=== PATIENT | female | born 1945 | race Caucasian/White ===

== ENCOUNTER 2019-09-21 12:34 | Emergency (ER) | payer BC, MEDICARE ==
[2019-09-21] MEDS ORDERED: Nitroglycerin 0.4 MG Tab.SL SL PRN (12:40)
[2019-09-21] MEDS ORDERED: Aspirin 81 MG Tab.Chew PO ONE (12:40)
--- NOTE | 2019-09-21 12:52 | EDM.PDOC ---
ED HPI GENERAL MEDICAL PROBLEM - General Chief Complaint: Chest Pain Stated Complaint: CHEST PAIN Time Seen by Provider: 09/21/19 12:35 Source of Information: Reports: Patient, Family History Limitations: Reports: No Limitations - History of Present Illness INITIAL COMMENTS - FREE TEXT/NARRATIVE: Patient states approximate couple hours ago she was having midsternal chest pain radiating to the left with some shortness of breath describes it as a pressure was about 4 out of 10. Upon arrival to the ER via POV she states she has no pain She denies any nausea vomiting diaphoretic episodes along with no lightheadedness or dizziness or passing out states she has been seen by her heart doctor before and has had a stress test never had a cath been told the only problem she has is hypertension Onset: Sudden Duration: Hour(s): Location: Reports: Chest Quality: Reports: Pressure Severity: Mild Improves with: Reports: Rest, Other (Time) Associated Symptoms: Reports: Chest Pain. Denies: Confusion, Cough, Diaphoresis , Fever/Chills, Headaches, Nausea/Vomiting, Weakness Middle Chest Pain Score (Numeric/FACES): 4 - Related Data Allergies Allergy/AdvReac Type Severity Reaction Status Date / Time No Known Allergies Allergy Verified 09/21/19 12:55 Home Meds: Home Meds Doxazosin [Doxazosin Mesylate] 1.5 tab PO DAILY 09/21/19 [History] Fluconazole [Diflucan] 150 mg PO DAILY 09/21/19 [History] hydrALAZINE [Apresoline] 50 mg PO Q8H 09/21/19 [History] Past Medical History Cardiovascular History: Reports: Hypertension Social & Family History - Family History Family Medical History: Noncontributory ED ROS GENERAL - Review of Systems Review Of Systems: See Below Constitutional: Reports: No Symptoms HEENT: Reports: No Symptoms Respiratory: Reports: Shortness of Breath. Denies: Wheezing, Pleuritic Chest Pain, Cough Cardiovascular: Reports: Chest Pain. Denies: Blood Pressure Problem, Claudication, Dyspnea on Exertion, Edema, Lightheadedness, Orthopnea, Palpitations, PND, Syncope Endocrine: Reports: No Symptoms GI/Abdominal: Reports: No Symptoms : Reports: No Symptoms Musculoskeletal: Reports: No Symptoms Skin: Reports: No Symptoms Neurological: Reports: No Symptoms Psychiatric: Reports: No Symptoms Hematologic/Lymphatic: Reports: No Symptoms Immunologic: Reports: No Symptoms ED EXAM, GENERAL - Physical Exam Exam: See Below Exam Limited By: No Limitations General Appearance: Alert, WD/WN, No Apparent Distress, Anxious, Other (Patient looks mildly anxious) Eye Exam: Bilateral Eye: PERRL Nose: Normal Inspection Throat/Mouth: Normal Inspection, Normal Lips, Normal Teeth, Normal Gums, Normal Oropharynx, Normal Voice, No Airway Compromise Neck: Normal Inspection, Supple, Non-Tender, Full Range of Motion Respiratory/Chest: No Respiratory Distress, Lungs Clear, Normal Breath Sounds, No Accessory Muscle Use, Chest Non-Tender Cardiovascular: Normal Peripheral Pulses, Regular Rate, Rhythm, No Edema, No Gallop, No JVD, No Murmur, No Rub GI/Abdominal: Normal Bowel Sounds, Soft, Non-Tender, No Organomegaly, No Distention Extremities: Normal Inspection, Normal Range of Motion, Non-Tender, Pedal Edema (1+ bilateral pedal edema). No: No Pedal Edema, Normal Capillary Refill Neurological: Alert, Oriented, CN II-XII Intact, Normal Cognition, Normal Gait Psychiatric: Normal Affect, Normal Mood Skin Exam: Warm, Dry, Intact, Normal Color, No Rash Course - Vital Signs Text/Narrative:: CBC BMP troponin chest x-ray EKG EKG normal sinus rhythm no acute findings of ST elevation or depression Positive troponin 0.[address] Zavala in the emergency room will accept transfer patient at 1342 give heparin 4000 bolus and transfer Last Recorded V/S: Last Vital Signs Temp 36.7 C 09/21/19 14:00 Pulse 76 09/21/19 14:00 Resp 16 09/21/19 14:00 BP 108/52 L 09/21/19 14:00 Pulse Ox 98 09/21/19 14:00 - Orders/Labs/Meds Orders: Active Orders 24 hr Category Date Time Status EKG Documentation Completion [RC] STAT Care 09/21/19 12:37 Active Labs: Laboratory Tests 09/21/19 09/21/19 09/21/19 Range/Units 12:52 12:52 12:52 WBC 9.5 (4.0-10.0) x10^3/uL RBC 3.60 L (4.00-5.50) x10^6/uL Hgb 11.0 L D (12.0-16.0) g/dL Hct 34.9 (33.0-47.0) % MCV 96.9 H D (78.0-93.0) fL MCH 30.6 (26.0-32.0) pg MCHC 31.5 L (32.0-36.0) g/dL RDW Coeff of Kimi 13.9 (10.0-15.0) % Plt Count 210 (130-400) x10^3/uL Neut % (Auto) 70.2 (50.0-80.0) % Lymph % (Auto) 22.1 L (25.0-50.0) % Leon % (Auto) 5.9 (2.0-11.0) % Eos % (Auto) 1.4 (0.0-4.0) % Baso % (Auto) 0.4 (0.2-1.2) % PT 10.2 (10.0-12.8) SEC INR 0.9 L (2.0-3.5) Sodium 143 (136-145) mmol/L Potassium 4.1 (3.5-5.1) mmol/L Chloride 104 (98-107) mmol/L Carbon Dioxide 26 (21-32) mmol/L Anion Gap 17.1 (10-20) mmol/L BUN 41 H (7-18) mg/dL Creatinine 2.2 H (0.55-1.02) mg/dL Est Cr Clr Drug Dosing TNP Estimated GFR (MDRD) 22 Glucose 121 H (74-106) mg/dL Calcium 9.4 (8.5-10.1) mg/dL Troponin I 0.208 H* (<=0.056) ng/mL Meds: Medications Discontinued Medications Generic Name Dose Route Start Last Admin Trade Name Freq PRN Reason Stop Dose Admin Aspirin 324 mg 09/21/19 12:40 09/21/19 12:40 Aspirin PO 09/21/19 12:41 324 mg ONETIME ONE Administration Heparin Sodium (Porcine) 4,000 units 09/21/19 13:40 09/21/19 13:49 Heparin Sodium IVPUSH 09/21/19 13:41 4,000 units .BOLUS ONE Administration Nitroglycerin 0.4 mg 09/21/19 12:40 09/21/19 12:50 Nitrostat SL 0.4 mg Q5M PRN Administration Chest Pain Departure - Departure Time of Disposition: 13:40 Disposition: DC/Tfer to Acute Hospital 02 Reason for Transfer *Q: Other (NSTEMI) Condition: Good Clinical Impression: NSTEMI (non-ST elevated myocardial infarction) Referrals: Daja Helm DO [Primary Care Provider] - Forms: ED Department Discharge, Interfacility Transfer JENNA Sepsis Event Note - Focused Exam Date Exam was Performed: 09/22/19 Time Exam was Performed: 08:27 - Problem List & Annotations (1) NSTEMI (non-ST elevated myocardial infarction) SNOMED Code(s): 36261987 Code(s): I21.4 - NON-ST ELEVATION (NSTEMI) MYOCARDIAL INFARCTION Status: Acute - My Orders Last 24 Hours: My Active Orders 09/21/19 12:37 EKG Documentation Completion [RC] STAT - Assessment/Plan Last 24 Hours: My Active Orders 09/21/19 12:37 EKG Documentation Completion [RC] STAT
--- NOTE | 2019-09-21 13:13 | CR ---
[id number] RAD/RAD Chest PA or AP 1V EXAM: FRONTAL CHEST INDICATION: CHEST PAIN. COMPARISON: July 05, 2016. DISCUSSION: Mild cardiomegaly without evidence of congestive heart failure. No acute infiltrates. IMPRESSION: 1. Stable mild cardiomegaly without evidence of congestive heart failure. Felipe Salcido MD 09/21/19 [id number] Thank you for allowing us to participate in the care of your patient.
[2019-09-21 13:32] LABS: ANION GAP 17.1 mmol/L (10-20); CHLORIDE,CL 104 mmol/L (98-107); SODIUM,NA 143 mmol/L (136-145)
[2019-09-21] MEDS ORDERED: Heparin Sodium 5,000 Units/ML Vial IVPUSH ONE (13:40)
[2019-09-21 14:05] VITALS: BP 108/52; PULSE 76
== END 2019-09-21 14:05 | disposition short-term general hospital (02) ==
LOC: VM.ED 12:34
DX: I21.4 Non-ST elevation (NSTEMI) myocardial infarction (principal); I10 Essential (primary) hypertension; Z79.899 Other long term (current) drug therapy
CPT/HCPCS: 71045; 80048; 84484; 85025; 85610; 93005; 96374; 99285; A9270; J1644

== ENCOUNTER 2019-09-26 09:36 | Emergency (ER) | payer BC, MEDICARE ==
[2019-09-26] MEDS ORDERED: Sodium Chloride 0.9% 10 ML Syringe FLUSH PRN (10:00)
[2019-09-26] MEDS ORDERED: Morphine 4 MG/ML Syringe IVPUSH ONE ×2 (10:02→12:09)
--- NOTE | 2019-09-26 10:06 | EDM.PDOC ---
ED HPI GENERAL MEDICAL PROBLEM - General Stated Complaint: ER Time Seen by Provider: 09/26/19 09:36 Source of Information: Reports: Patient, EMS, Family History Limitations: Reports: No Limitations - History of Present Illness INITIAL COMMENTS - FREE TEXT/NARRATIVE: Pt. presents to ER with complaints of L sided anterior chest pain with radiation into her L shoulder. Pt. states that she was getting up to use the bathroom from the sofa at onset of symptoms. Pt. was transferred to [facility] in [place] on 09/21/19 with NSTEMI and underwent stenting (90% stenosis mid LAD). She has residual 50% stenosis of RCA that appeared not be be addressed due to patient's CKD. Pt. was apparently experiencing some palpitations which she is not experiencing today. She also is currently being treated for UTI as well. Pt. states that during the onset symptoms on 09/21, she was experiencing substernal chest pain and bilateral upper extremity numbness. Today, she states that it is more of a discomfort in the L chest with discomfort in the L shoulder. Denies any nausea, vomiting, or diarrhea. No shortness of breath. She states that she has been chilled recently; pt. is currently being treated for UTI. She continues to have peripheral edema. This has not changed. Pt. has a history also of bursitis/severe chronic hip pain which she states is severe today. In fact, the patient states that the discomfort in her hip is more distressing the the discomfort in her chest/arm. Onset: Today Onset Date: 09/26/19 Location: Reports: Chest, Upper Extremity, Left, Lower Extremity, Right, Radiates to Quality: Reports: Ache Severity: Mild Associated Symptoms: Reports: Chest Pain, Fever/Chills, Loss of Appetite, Malaise. Denies: Confusion, Cough, cough w sputum, Diaphoresis, Headaches, Nausea/Vomiting, Rash, Seizure, Shortness of Breath, Syncope, Weakness - Related Data Allergies Allergy/AdvReac Type Severity Reaction Status Date / Time No Known Allergies Allergy Verified 09/21/19 12:55 Home Meds: Home Meds Doxazosin [Doxazosin Mesylate] 1.5 tab PO DAILY 09/21/19 [History] Fluconazole [Diflucan] 150 mg PO DAILY 09/21/19 [History] hydrALAZINE [Apresoline] 50 mg PO Q8H 09/21/19 [History] Past Medical History Cardiovascular History: Reports: Hypertension Other Gastrointestinal History: dysphagia. intestinal diverticular abscess. nausea/vomiting Genitourinary History: Reports: Chronic Renal Insuffiency Musculoskeletal History: Reports: Gout Other Musculoskeletal History: bilateral lower leg edema. venous ulcer of right leg Psychiatric History: Reports: Anxiety Endocrine/Metabolic History: Reports: Obesity/BMI 30+ Other Endocrine/Metabolic History: adrenal adenoma Social & Family History - Family History Family Medical History: Noncontributory ED ROS GENERAL - Review of Systems Review Of Systems: See Below Constitutional: Reports: Chills, Fatigue. Denies: Malaise, Night Sweats, Diaphoresis HEENT: Reports: No Symptoms Respiratory: Reports: No Symptoms Cardiovascular: Reports: Chest Pain Endocrine: Reports: No Symptoms GI/Abdominal: Reports: No Symptoms : Reports: No Symptoms Musculoskeletal: Reports: Arm Pain, Joint Pain (R hip) Skin: Reports: No Symptoms Neurological: Reports: No Symptoms Psychiatric: Reports: No Symptoms Hematologic/Lymphatic: Reports: No Symptoms Immunologic: Reports: No Symptoms ED EXAM, GENERAL - Physical Exam Exam: See Below Exam Limited By: No Limitations General Appearance: Alert, WD/WN, No Apparent Distress Throat/Mouth: Normal Inspection, Normal Lips, Normal Teeth, Normal Gums, Normal Oropharynx, Normal Voice, No Airway Compromise Head: Atraumatic, Normocephalic Neck: Normal Inspection, Supple, Non-Tender, Full Range of Motion Respiratory/Chest: No Respiratory Distress, Lungs Clear, Normal Breath Sounds, No Accessory Muscle Use, Chest Non-Tender Cardiovascular: Normal Peripheral Pulses, Regular Rate, Rhythm, Other (edema). No: No JVD, No Murmur, No Rub, Bradycardia, Tachycardia, Irregularly Irregular Peripheral Pulses: 4+: Radial (L) GI/Abdominal: Normal Bowel Sounds, Soft, Non-Tender, No Organomegaly, No Distention, No Abnormal Bruit, No Mass, Pelvis Stable (Female) Exam: Deferred Rectal (Female) Exam: Deferred Back Exam: Normal Inspection, Full Range of Motion Extremities: Normal Inspection, Normal Range of Motion, No Pedal Edema, Limited Range of Motion (R hip) Neurological: Alert, Oriented, CN II-XII Intact, Normal Cognition, Normal Gait, Normal Reflexes, No Motor/Sensory Deficits Psychiatric: Normal Affect, Normal Mood Skin Exam: Warm, Dry, Intact, Normal Color, No Rash Lymphatic: No Adenopathy EKG INTERPRETATION Rhythm: NSR [place]: Normal P-Wave: Present QRS: Normal ST-T: Normal QT: Normal Course - Orders/Labs/Meds Orders: Active Orders 24 hr Category Date Time Status EKG Documentation Completion [RC] STAT Care 09/26/19 10:00 Active CULTURE BLOOD [BC] Stat Lab 09/26/19 10:13 Results CULTURE BLOOD [BC] Stat Lab 09/26/19 10:20 Received Heparin Sodium Med 09/26/19 11:20 Once 4,000 units IVPUSH .BOLUS ONE Heparin Sodium/0.45% NaCl [Heparin 25,000 Units in 1/2 Med 09/26/19 11:30 Ordered NS 500 ML] 25,000 units in 500 ml IV CONTINUOUS Sodium Chloride 0.9% [Saline Flush] Med 09/26/19 10:00 Active 10 ml FLUSH ASDIRECTED PRN Blood Culture x2 Reflex Set [OM.PC] Stat Oth 09/26/19 10:01 Ordered Peripheral IV Insertion Adult [OM.PC] Routine Oth 09/26/19 10:01 Ordered Medication Orders Sodium Chloride (Saline Flush) 10 ml FLUSH ASDIRECTED PRN PRN Reason: Keep Vein Open Last Admin: 09/26/19 10:25 Dose: 10 ml Labs: Laboratory Tests 09/26/19 09/26/19 09/26/19 Range/Units 10:20 10:20 10:20 WBC 11.4 H (4.0-10.0) x10^3/uL RBC 2.92 L (4.00-5.50) x10^6/uL Hgb 9.1 L D (12.0-16.0) g/dL Hct 28.7 L (33.0-47.0) % MCV 98.3 H (78.0-93.0) fL MCH 31.2 (26.0-32.0) pg MCHC 31.7 L (32.0-36.0) g/dL RDW Coeff of Kimi 13.5 (10.0-15.0) % Plt Count 176 (130-400) x10^3/uL Neut % (Auto) 80.8 H (50.0-80.0) % Lymph % (Auto) 10.7 L (25.0-50.0) % Wilcox % (Auto) 6.8 (2.0-11.0) % Eos % (Auto) 1.4 (0.0-4.0) % Baso % (Auto) 0.3 (0.2-1.2) % PT 10.6 (10.0-12.8) SEC INR 0.9 L (2.0-3.5) Sodium 143 (136-145) mmol/L Potassium 4.1 (3.5-5.1) mmol/L Chloride 107 (98-107) mmol/L Carbon Dioxide 25 (21-32) mmol/L Anion Gap 15.1 (10-20) mmol/L BUN 37 H (7-18) mg/dL Creatinine 2.2 H (0.55-1.02) mg/dL Est Cr Clr Drug Dosing TNP Estimated GFR (MDRD) 22 Glucose 94 (74-106) mg/dL Lactic Acid (0.4-2.0) mmol/L Calcium 8.5 (8.5-10.1) mg/dL Corrected Calcium 9.30 (8.5-10.1) mg/dL Phosphorus 2.9 (2.6-4.7) mg/dL Magnesium 2.2 (1.8-2.4) mg/dL Total Bilirubin 0.3 (0.2-1.0) mg/dL AST 11 L (15-37) U/L ALT 17 (14-59) U/L Alkaline Phosphatase 49 (46-116) U/L Troponin I 0.719 H* (<=0.056) ng/mL C-Reactive Protein 3.2 H (<=0.9) mg/dL NT-Pro-B Natriuret Pep 978 H (<=125) pg/mL Total Protein 6.3 L (6.4-8.2) g/dL Albumin 3.0 L (3.4-5.0) g/dL Globulin 3.3 Albumin/Globulin Ratio 0.91 02/25/20 Range/Units 10:20 WBC (4.0-10.0) x10^3/uL RBC (4.00-5.50) x10^6/uL Hgb (12.0-16.0) g/dL Hct (33.0-47.0) % MCV (78.0-93.0) fL MCH (26.0-32.0) pg MCHC (32.0-36.0) g/dL RDW Coeff of Kimi (10.0-15.0) % Plt Count (130-400) x10^3/uL Neut % (Auto) (50.0-80.0) % Lymph % (Auto) (25.0-50.0) % Wilcox % (Auto) (2.0-11.0) % Eos % (Auto) (0.0-4.0) % Baso % (Auto) (0.2-1.2) % PT (10.0-12.8) SEC INR (2.0-3.5) Sodium (136-145) mmol/L Potassium (3.5-5.1) mmol/L Chloride (98-107) mmol/L Carbon Dioxide (21-32) mmol/L Anion Gap (10-20) mmol/L BUN (7-18) mg/dL Creatinine (0.55-1.02) mg/dL Est Cr Clr Drug Dosing Estimated GFR (MDRD) Glucose (74-106) mg/dL Lactic Acid 0.7 (0.4-2.0) mmol/L Calcium (8.5-10.1) mg/dL Corrected Calcium (8.5-10.1) mg/dL Phosphorus (2.6-4.7) mg/dL Magnesium (1.8-2.4) mg/dL Total Bilirubin (0.2-1.0) mg/dL AST (15-37) U/L ALT (14-59) U/L Alkaline Phosphatase (46-116) U/L Troponin I (<=0.056) ng/mL C-Reactive Protein (<=0.9) mg/dL NT-Pro-B Natriuret Pep (<=125) pg/mL Total Protein (6.4-8.2) g/dL Albumin (3.4-5.0) g/dL Globulin Albumin/Globulin Ratio Meds: Medications Generic Name Dose Route Start Last Admin Trade Name Freq PRN Reason Stop Dose Admin Sodium Chloride 10 ml 09/26/19 10:00 09/26/19 10:25 Saline Flush FLUSH 10 ml ASDIRECTED PRN Administration Keep Vein Open Discontinued Medications Generic Name Dose Route Start Last Admin Trade Name Nolbertoq PRN Reason Stop Dose Admin Morphine Sulfate 4 mg 09/26/19 10:02 09/26/19 10:24 Morphine IVPUSH 09/26/19 10:03 4 mg ONETIME ONE Administration Departure - Departure Time of Disposition: Disposition: DC/Tfer to Acute Hospital 02 Clinical Impression: NSTEMI (non-ST elevated myocardial infarction) - Discharge Information Sepsis Event Note - Focused Exam Date Exam was Performed: 09/26/19 Time Exam was Performed: : - Problem List Review Problem List Initiated/Reviewed/Updated: Yes - My Orders Last 24 Hours: My Active Orders 09/26/19 10:00 EKG Documentation Completion [RC] STAT Sodium Chloride 0.9% [Saline Flush] 10 ml FLUSH ASDIRECTED PRN 09/26/19 10:01 Blood Culture x2 Reflex Set [OM.PC] Stat Peripheral IV Insertion Adult [OM.PC] Routine 09/26/19 10:13 CULTURE BLOOD [BC] Stat 09/26/19 10:20 CULTURE BLOOD [BC] Stat 09/26/19 11:20 Heparin Sodium 4,000 units IVPUSH .BOLUS ONE 09/26/19 11:30 Heparin Sodium/0.45% NaCl [Heparin 25,000 Units in 1/2 NS 500 ML] 25,000 units in 500 ml IV CONTINUOUS - Assessment/Plan Last 24 Hours: My Active Orders 09/26/19 10:00 EKG Documentation Completion [RC] STAT Sodium Chloride 0.9% [Saline Flush] 10 ml FLUSH ASDIRECTED PRN 09/26/19 10:01 Blood Culture x2 Reflex Set [OM.PC] Stat Peripheral IV Insertion Adult [OM.PC] Routine 09/26/19 10:13 CULTURE BLOOD [BC] Stat 09/26/19 10:20 CULTURE BLOOD [BC] Stat 09/26/19 11:20 Heparin Sodium 4,000 units IVPUSH .BOLUS ONE 09/26/19 11:30 Heparin Sodium/0.45% NaCl [Heparin 25,000 Units in 1/2 NS 500 ML] 25,000 units in 500 ml IV CONTINUOUS Plan: Pt. troponin had been trending downward during her stay at [facility] (down to 0.104) and today the troponin was up to 0.719. Chest and arm pain improved with nitro. Given these findings, patient will be transported to [facility] in [place] for further evaluation and care. Certainly her positive troponin could be secondary to her chronic kidney disease as well, but with the upward trend after some lowering of the troponin this needs to be investigated. She was given a heparin bolus 4000u bolus and started on a drip at 1000u/hr. She has had her aspirin. She is currently on coreg and plavix. Pt. will be transported via [facility] ground ambulance.
--- NOTE | 2019-09-26 10:59 | CR ---
[id number] RAD/RAD Chest PA or AP 1V EXAM: SINGLE VIEW CHEST. INDICATION: CHEST PAIN COMPARISON: CORRELATION IS MADE WITH THE EXAM OF SEPTEMBER 21, 2019 FINDINGS: The lungs are clear The cardiomediastinal contour is stable IMPRESSION: NO PNEUMONIA OR EDEMA Gagan Zuñiga MD 09/26/19 [id number] Thank you for allowing us to participate in the care of your patient.
[2019-09-26 11:05] LABS: CHLORIDE,CL 107 mmol/L (98-107); SODIUM,NA 143 mmol/L (136-145)
[2019-09-26 11:06] LABS: ANION GAP 15.1 mmol/L (10-20)
[2019-09-26] MEDS ORDERED: Heparin Sodium 5,000 Units/ML Vial IVPUSH ONE (11:20)
[2019-09-26] MEDS ORDERED: Heparin Sodium/0.45% NaCl 25,000 UNITS/500 ML BAG IV SCH (11:30)
[2019-09-26 11:57] VITALS: BP 136/57; PULSE 92
== END 2019-09-26 12:20 | disposition short-term general hospital (02) ==
LOC: VM.ED 09:36
DX: I21.4 Non-ST elevation (NSTEMI) myocardial infarction (principal); I12.9 Hypertensive chronic kidney disease with stage 1 through stage 4 chronic kidney disease, or unspecified chronic kidney disease; N18.9 Chronic kidney disease, unspecified; Z79.899 Other long term (current) drug therapy
CPT/HCPCS: 36415; 71045; 80053; 83605; 83735; 83880; 84100; 84484; 85025; 85610; 86140; 87040; 93005; 96365; 96375; 96376; 99285; J1644; J2270

== ENCOUNTER 2020-07-07 07:24 | Emergency (ER) | payer BC ==
[2020-07-07] MEDS ORDERED: Aspirin 81 MG Tab.Chew PO ONE (07:43)
--- NOTE | 2020-07-07 08:56 | CR ---
[id number] RAD/RAD Chest PA or AP 1V EXAM: RAD Chest PA or AP 1V INDICATION: SHORT OF BREATH. COMPARISON: September 2019. DISCUSSION: Cardiomediastinal silhouette is unremarkable. Left lung base opacity not seen previously. Correlate for signs of infection, as this could represent pneumonia. Differential diagnosis includes atelectasis and aspiration. IMPRESSION: As above. Jacob Johnson MD 07/07/20 0854 Thank you for allowing us to participate in the care of your patient.
[2020-07-07 09:31] LABS: ANION GAP 13.4 mmol/L (10-20)
--- NOTE | 2020-07-07 09:47 | EDM.PDOC ---
ED HPI GENERAL MEDICAL PROBLEM - General Chief Complaint: Respiratory Problem Stated Complaint: SOB Time Seen by Provider: 07/07/20 07:45 Source of Information: Reports: Patient History Limitations: Reports: No Limitations - History of Present Illness INITIAL COMMENTS - FREE TEXT/NARRATIVE: Patient comes emergency department today from home with complaints of shortness of breath as well as tightness in her chest. Patient for the past couple days it is really felt unremarkable. Although this morning when she woke up she felt more short of breath than she typically would feel. She also has some tightness in her chest. Shortness of breath is really not much at rest but does get a little bit worse with physical exertion. The tightness in her chest is the same no matter what she does when she is physically exerting herself or sitting. She has no cough or congestion. No cough no sputum. No fever no chills. No body aches. No weakness dizziness lightheadedness. No palpitations or syncope. No fever no chills. No abdominal pain nausea vomiting. No hematuria dysuria or urinary frequency. No black or tarry stools. No Covid exposure no Covid symptoms. She did receive her influenza vaccine this year. Treatments TECHNICAL SOLUTIONS CONSULTANT: Reports: EKG, IV/IO Right Chest Pain Score (Numeric/FACES): 5 - Related Data Allergies Allergy/AdvReac Type Severity Reaction Status Date / Time No Known Allergies Allergy Verified 07/07/20 07:55 Home Meds: Home Meds Doxazosin [Doxazosin Mesylate] 1.5 mg PO DAILY 09/21/19 [History] hydrALAZINE [Apresoline] 50 mg PO Q8H 09/21/19 [History] Acetaminophen [Tylenol] 650 mg PO Q4H PRN 09/26/19 [History] Aspirin [Ecotrin EC] 81 mg PO DAILY 09/26/19 [History] Clopidogrel [Plavix] 75 mg PO DAILY 09/26/19 [History] Rosuvastatin [Crestor] 10 mg PO DAILY 09/26/19 [History] carvediloL [Carvedilol] 12.5 mg PO BID 09/26/19 [History] ALPRAZolam [Xanax] 0.25 mg PO BID PRN 07/07/20 [History] Ascorbic Acid [Vitamin C] 250 mg PO BID 07/07/20 [History] Iron,Carbonyl/Ascorbic Acid [Iron 100-Vitamin C Tablet] 1 each PO BID 07/07/20 [History] Nitroglycerin [Nitrostat] 0.4 mg SL ASDIRECTED PRN 07/07/20 [History] Nystatin [Nyamyc] 1 dose TP BID PRN 07/07/20 [History] Pantoprazole Sodium [Protonix] 40 mg PO DAILY 07/07/20 [History] dexAMETHasone [Decadron] 6 mg PO DAILY #9 tablet 07/07/20 [Rx] Past Medical History Cardiovascular History: Reports: CAD, High Cholesterol, Hypertension, AR, Stents Other Gastrointestinal History: dysphagia. intestinal diverticular abscess. nausea/vomiting Genitourinary History: Reports: Chronic Renal Insuffiency Musculoskeletal History: Reports: Gout Other Musculoskeletal History: bilateral lower leg edema. venous ulcer of right leg Psychiatric History: Reports: Anxiety Endocrine/Metabolic History: Reports: Obesity/BMI 30+ Other Endocrine/Metabolic History: adrenal adenoma Social & Family History - Family History Family Medical History: No Pertinent Family History - Tobacco Use Tobacco Use Status *Q: Never Tobacco User ED ROS GENERAL - Review of Systems Review Of Systems: Comprehensive ROS is negative, except as noted in HPI. ED EXAM, GENERAL - Physical Exam Exam: See Below Exam Limited By: No Limitations General Appearance: Alert, WD/WN, No Apparent Distress Eye Exam: Bilateral Eye: EOMI, PERRL Ears: Normal External Exam Nose: Normal Inspection Throat/Mouth: Normal Inspection Head: Atraumatic, Normocephalic Neck: Normal Inspection, Supple, Non-Tender, Full Range of Motion Respiratory/Chest: No Respiratory Distress, Lungs Clear, Normal Breath Sounds, No Accessory Muscle Use, Chest Non-Tender. No: Respiratory Distress, Crackles, Rales, Rhonchi, Wheezing Cardiovascular: Normal Peripheral Pulses, Regular Rate, Rhythm Peripheral Pulses: 2+: Radial (L), Radial (R), Posterior Tibial (L), Posterior Tibial (R), Dorsalis Pedis (L), Dorsalis Pedis (R) GI/Abdominal: Normal Bowel Sounds, Soft, Non-Tender (Female) Exam: Deferred Rectal (Female) Exam: Deferred Back Exam: Normal Inspection, Full Range of Motion Extremities: Normal Inspection, No Pedal Edema (1+ bilateral edema. She does compression stockings in place.), Normal Capillary Refill Neurological: Alert, Oriented, Normal Cognition, No Motor/Sensory Deficits Psychiatric: Normal Affect, Normal Mood Skin Exam: Warm, Dry, Intact, Normal Color, No Rash #1 Interpretation EKG Date: 07/07/20 Rhythm: NSR Rate (Beats/Min): 91 Doyle: Normal P-Wave: Present QRS: Normal ST-T: Normal QT: Normal Comparison: No Change Course - Vital Signs Last Recorded V/S: Last Vital Signs Temp 98.7 F 07/07/20 08:01 Pulse 89 07/07/20 13:00 Resp 16 07/07/20 13:00 BP 115/58 L 07/07/20 13:00 Pulse Ox 96 07/07/20 13:00 - Orders/Labs/Meds Labs: Laboratory Tests 07/07/20 07/07/20 07/07/20 Range/Units 07:43 08:37 08:37 WBC 5.1 (4.0-10.0) x10^3/uL RBC 3.15 L (4.00-5.50) x10^6/uL Hgb 9.1 L (12.0-16.0) g/dL Hct 29.6 L (33.0-47.0) % MCV 94.0 H D (78.0-93.0) fL MCH 28.9 (26.0-32.0) pg MCHC 30.7 L (32.0-36.0) g/dL RDW Coeff of Kimi 13.9 (10.0-15.0) % Plt Count 141 (130-400) x10^3/uL Neut % (Auto) 70.6 (50.0-80.0) % Lymph % (Auto) 20.5 L (25.0-50.0) % [place] % (Auto) 8.5 (2.0-11.0) % Eos % (Auto) 0.2 (0.0-4.0) % Baso % (Auto) 0.2 (0.2-1.2) % D-Dimer, Quantitative (<=0.58) mg/LFEU Sodium 140 (136-145) mmol/L Potassium 4.4 (3.5-5.1) mmol/L Chloride 104 (98-107) mmol/L Carbon Dioxide 27 (21-32) mmol/L Anion Gap 13.4 (10-20) mmol/L BUN 39 H (7-18) mg/dL Creatinine 2.3 H (0.55-1.02) mg/dL Est Cr Clr Drug Dosing 18.25 mL/min Estimated GFR (MDRD) 21 Glucose 92 (74-106) mg/dL Calcium 9.0 (8.5-10.1) mg/dL Corrected Calcium 10.04 (8.5-10.1) mg/dL Ferritin (8-252) ng/mL Total Bilirubin 0.5 (0.2-1.0) mg/dL AST 22 (15-37) U/L ALT 18 (14-59) U/L Alkaline Phosphatase 53 (46-116) U/L Lactate Dehydrogenase (81-234) U/L Troponin I 0.098 H* (<=0.056) ng/mL C-Reactive Protein 6.4 H (<=0.9) mg/dL NT-Pro-B Natriuret Pep 618 H (<=450) pg/mL Total Protein 6.2 L (6.4-8.2) g/dL Albumin 2.7 L (3.4-5.0) g/dL Globulin 3.5 Albumin/Globulin Ratio 0.77 SARS CoV-2 RNA Rapid YARA Positive H (NEGATIVE) 07/07/20 07/07/20 07/07/20 Range/Units 08:37 08:37 08:37 WBC (4.0-10.0) x10^3/uL RBC (4.00-5.50) x10^6/uL Hgb (12.0-16.0) g/dL Hct (33.0-47.0) % MCV (78.0-93.0) fL MCH (26.0-32.0) pg MCHC (32.0-36.0) g/dL RDW Coeff of Kimi (10.0-15.0) % Plt Count (130-400) x10^3/uL Neut % (Auto) (50.0-80.0) % Lymph % (Auto) (25.0-50.0) % [place] % (Auto) (2.0-11.0) % Eos % (Auto) (0.0-4.0) % Baso % (Auto) (0.2-1.2) % D-Dimer, Quantitative 2.05 H (<=0.58) mg/LFEU Sodium (136-145) mmol/L Potassium (3.5-5.1) mmol/L Chloride (98-107) mmol/L Carbon Dioxide (21-32) mmol/L Anion Gap (10-20) mmol/L BUN (7-18) mg/dL Creatinine (0.55-1.02) mg/dL Est Cr Clr Drug Dosing mL/min Estimated GFR (MDRD) Glucose (74-106) mg/dL Calcium (8.5-10.1) mg/dL Corrected Calcium (8.5-10.1) mg/dL Ferritin 814 H (8-252) ng/mL Total Bilirubin (0.2-1.0) mg/dL AST (15-37) U/L ALT (14-59) U/L Alkaline Phosphatase (46-116) U/L Lactate Dehydrogenase 146 (81-234) U/L Troponin I (<=0.056) ng/mL C-Reactive Protein (<=0.9) mg/dL NT-Pro-B Natriuret Pep (<=450) pg/mL Total Protein (6.4-8.2) g/dL Albumin (3.4-5.0) g/dL Globulin Albumin/Globulin Ratio SARS CoV-2 RNA Rapid YARA (NEGATIVE) 07/07/20 Range/Units 12:33 WBC (4.0-10.0) x10^3/uL RBC (4.00-5.50) x10^6/uL Hgb (12.0-16.0) g/dL Hct (33.0-47.0) % MCV (78.0-93.0) fL MCH (26.0-32.0) pg MCHC (32.0-36.0) g/dL RDW Coeff of Kimi (10.0-15.0) % Plt Count (130-400) x10^3/uL Neut % (Auto) (50.0-80.0) % Lymph % (Auto) (25.0-50.0) % [place] % (Auto) (2.0-11.0) % Eos % (Auto) (0.0-4.0) % Baso % (Auto) (0.2-1.2) % D-Dimer, Quantitative (<=0.58) mg/LFEU Sodium (136-145) mmol/L Potassium (3.5-5.1) mmol/L Chloride (98-107) mmol/L Carbon Dioxide (21-32) mmol/L Anion Gap (10-20) mmol/L BUN (7-18) mg/dL Creatinine (0.55-1.02) mg/dL Est Cr Clr Drug Dosing mL/min Estimated GFR (MDRD) Glucose (74-106) mg/dL Calcium (8.5-10.1) mg/dL Corrected Calcium (8.5-10.1) mg/dL Ferritin (8-252) ng/mL Total Bilirubin (0.2-1.0) mg/dL AST (15-37) U/L ALT (14-59) U/L Alkaline Phosphatase (46-116) U/L Lactate Dehydrogenase (81-234) U/L Troponin I 0.095 H* (<=0.056) ng/mL C-Reactive Protein (<=0.9) mg/dL NT-Pro-B Natriuret Pep (<=450) pg/mL Total Protein (6.4-8.2) g/dL Albumin (3.4-5.0) g/dL Globulin Albumin/Globulin Ratio SARS CoV-2 RNA Rapid YARA (NEGATIVE) Meds: Medications Discontinued Medications Generic Name Dose Route Start Last Admin Trade Name Freq PRN Reason Stop Dose Admin Albuterol 0 gm 07/07/20 13:35 07/07/20 13:57 Ventolin Hfa INH 2 puff Q4H PRN Administration Shortness of Breath Aspirin 324 mg 07/07/20 07:43 07/07/20 07:50 Aspirin PO 07/07/20 07:44 324 mg ONETIME ONE Administration Dexamethasone 2 mg/ 6 mg 07/07/20 12:45 07/07/20 13:08 Dexamethasone 4 mg PO 07/07/20 12:46 6 mg ONETIME ONE Administration Diphenhydramine HCl 50 mg 07/07/20 10:35 Benadryl IVPUSH ONETIME PRN hypersensitivity reaction Epinephrine HCl 0.3 mg 07/07/20 10:35 Adrenalin IM ONETIME PRN hypersensitivity reaction Famotidine 20 mg 07/07/20 10:35 Pepcid IVPUSH ONETIME PRN hypersensitivity reaction Bamlanivimab 700 mg/ Sodium 270 mls @ 270 mls/hr 07/07/20 10:35 07/07/20 10:50 Chloride IV 07/07/20 10:36 270 mls/hr ONETIME ONE Administration Protocol Methylprednisolone Sodium Succinate 125 mg 07/07/20 10:35 Solu-Medrol IVPUSH ONETIME PRN hypersensitivity reaction Sodium Chloride 30 ml 07/07/20 10:45 Saline Flush FLUSH ASDIRECTED PIETRO - Radiology Interpretation Free Text/Narrative:: Chest x-ray per radiology shows cardiomediastinal silhouette is unremarkable. Left lung base opacity not seen previously correlate for signs of infection, and this could represent pneumonia. Differential diagnosis includes atelectasis and aspiration. - Re-Assessments/Exams Free Text/Narrative Re-Assessment/Exam: Patient's labs are drawn. EKG no ST elevation or depression when reviewed extemporaneously by myself. She is clearly in no respiratory distress. She is not requiring any oxygen to keep her sats above 92%. Rapid Covid test is positive. Laboratory evaluation with a normal white blood cell count of 5.1, hemoglobin 9.1 she is at baseline with her chronic kidney disease platelets 141. D-dimer 2.05 this is not a measurement of PE but a measurement for Covid. Creatinine 2.3 with a BUN 39 and above baseline. Sodium potassium are normal. Ferritin elevated at 814 most likely indicative of acute reactive phase Covid. Lactate dehydrogenase is normal. CRP is minimally elevated at 6.4. Patient does have an elevated troponin at 0.098 really does not have any pain in her chest just some tightness in her chest. She was given 324 mg of aspirin orally. This patient does meet the criteria for the administration of Bamlaninuvab for high risk elderly co morbid patients with the new diagnosis of COVID. I reviewed the risk benefits that are known of this new medication with the patient. I discussed that this is a new medicaiton that has not fully been evaluated for side effects and benfits by the FDA. She was given an opportunity to ask questions and her questions were answered satisfactorly. She was given the facts sheet for the EUA of this medications. After we reviewed the EUA usage for this not FDA approved medication benefits risks and no side effects in the emergency administration of this medication that is not clearly FDA approved the patient questions were answered satisfactorily. He was comfortable with the plan to administer this medication. And she gave verbal consent. He was given this medication as per protocol. She was monitored after the hour infusion for another hour. She has no side effects or change her symptomology. We did repeat her troponin at the 4-hour juan and her troponin was 0.095. Her shortness of breath is no longer present at rest. And the tightness in her chest is somewhat improved as well. I believe that the elevated troponin is due to her chronic kidney disease not from any cardiac strain and/or infarction. I did offer continued observation in the hospital with serial troponins although she declined. She is not requiring any oxygen nor is she in any respiratory distress. We will discharge her home on dexamethasone 6 mg p.o. daily for the next 10 days. Other symptomatic management as well to include albuterol. I discussed the plan to return to the emergency department if she has any new or worsening symptoms especially if severe shortness of breath or other recurrence of any chest pain. She is comfortable with this plan and her questions are answered. Departure - Departure Time of Disposition: 13:32 Disposition: Home, Self-Care 01 Clinical Impression: COVID-19 CRF (chronic renal failure) Qualifiers: Chronic kidney disease stage: unspecified stage Qualified Code(s): N18.9 - Chronic kidney disease, unspecified - Discharge Information Prescriptions: dexAMETHasone [Decadron] 6 mg PO DAILY #9 tablet Instructions: COVID-19 Frequently Asked Questions, Shortness of Breath, Adult, [id number], COVID-19: How to Protect Yourself and Others - CDC, Prevent the Spread of COVID-19 if You Are Sick - [facility] Referrals: Daja Helm, DO [Primary Care Provider] - Forms: ED Department Discharge Additional Instructions: Tylenol as needed for fever. Make sure you are drinking plenty of fluids this is determine how well you feel. Eating small frequent meals this is also very important. Dexamethasone 6mg by mouth daily for the next 9 days. RX sent to your pharmacy. Albuterol inhaler, 2 puffs every 4 hrs as needed for cough SOB. Dispensed from the ED. Vitamin C 1000mg by mouth twice daily Zinc 50mg by mouth daily. Vitamin D, 5000 units daily. You will be contacted by the state. Isolate at home for the next 10 days. Notify any close contacts that they were exposed. Return to the ED if severe SOB Follow up with PCP in the next 4-5 days for recheck. Sepsis Event Note (ED) - Evaluation Sepsis Screening Result: No Definite Risk
[2020-07-07] MEDS ORDERED: diphenhydrAMINE 50 MG/ML SDV IVPUSH PRN (10:35)
[2020-07-07] MEDS ORDERED: Famotidine 20 MG/2 ML SDV IVPUSH PRN (10:35)
[2020-07-07] MEDS ORDERED: methylPREDNISolone Sodium Succinate 125 MG/2 ML SDV IVPUSH PRN (10:35)
[2020-07-07] MEDS ORDERED: EPINEPHrine 1 MG/ML SDV IM PRN (10:35)
[2020-07-07] MEDS ORDERED: Sodium Chloride 0.9% 10 ML Syringe FLUSH SCH (10:45)
[2020-07-07] MEDS ORDERED: dexAMETHasone 2 MG, dexAMETHasone 4 MG PO ONE ×2 (12:45)
[2020-07-07] MEDS ORDERED: Albuterol HFA 18 Gm Inhaler INH PRN (13:35)
[2020-07-07 18:32] VITALS: BP 115/58; PULSE 89
== END 2020-07-07 14:05 | disposition home or self-care (01) ==
LOC: VM.ED 07:24
DX: U07.1 COVID-19 (principal); I12.9 Hypertensive chronic kidney disease with stage 1 through stage 4 chronic kidney disease, or unspecified chronic kidney disease; N18.9 Chronic kidney disease, unspecified; I25.10 Atherosclerotic heart disease of native coronary artery without angina pectoris; E78.00 Pure hypercholesterolemia, unspecified; E66.9 Obesity, unspecified; F41.9 Anxiety disorder, unspecified; M10.9 Gout, unspecified; I25.2 Old myocardial infarction; Z95.5 Presence of coronary angioplasty implant and graft; Z68.36 Body mass index [BMI] 36.0-36.9, adult; Z79.82 Long term (current) use of aspirin; Z79.02 Long term (current) use of antithrombotics/antiplatelets; Z79.899 Other long term (current) drug therapy
CPT/HCPCS: 36415; 71045; 80053; 82728; 83615; 83880; 84145; 84484; 85025; 85379; 86140; 93005; 96365; 99284; 99285-25; A9270-GY; J7050; J8540; U0002

== ENCOUNTER 2021-02-05 19:33 | Emergency (ER) | payer BC, MEDICARE ==
[2021-02-05] MEDS ORDERED: HYDROmorphone 1 MG/ML Syringe IVPUSH ONE ×2 (19:38→20:05)
[2021-02-05] MEDS ORDERED: Sodium Chloride 0.9% 10 ML Syringe FLUSH PRN (19:38)
--- NOTE | 2021-02-05 19:50 | EDM.PDOC ---
ED HPI GENERAL MEDICAL PROBLEM - General Stated Complaint: HIP PAIN Time Seen by Provider: 02/05/21 19:43 Source of Information: Reports: Patient History Limitations: Reports: No Limitations - History of Present Illness INITIAL COMMENTS - FREE TEXT/NARRATIVE: Pt. presents to ER with complaints of R hip pain. Pt. has a history of severe OA and is scheduled for a hip replacement in March. She states that the discomfort is getting worse. She was seen recently in the clinic and was diagnosed with a total of 8 50mg tramadol for pain control. She states that she is almost out of the medication. Pt. lives by herself in a house in [place]. She does most of her own ADLs. Pt. denies any recent trauma to the hip or pelvis. No recent falls or acute injury to the joint. She is able to bear weight and ambulate with assistance. Onset: Today Onset Date: 02/05/21 Location: Reports: Lower Extremity, Right Quality: Reports: Ache, Burning, Sharp, Stabbing, Throbbing Severity: Severe (9 out of 10) Improves with: Reports: Rest Worsens with: Reports: Movement Right Hip Pain Score (Numeric/FACES): 9 - Related Data Allergies Allergy/AdvReac Type Severity Reaction Status Date / Time No Known Allergies Allergy Verified 07/07/20 07:55 Home Meds: Home Meds Doxazosin [Doxazosin Mesylate] 1.5 mg PO DAILY 09/21/19 [History] hydrALAZINE [Apresoline] 50 mg PO Q8H 09/21/19 [History] Acetaminophen [Tylenol] 650 mg PO Q4H PRN 09/26/19 [History] Aspirin [Ecotrin EC] 81 mg PO DAILY 09/26/19 [History] Clopidogrel [Plavix] 75 mg PO DAILY 09/26/19 [History] Rosuvastatin [Crestor] 10 mg PO DAILY 09/26/19 [History] carvediloL [Carvedilol] 12.5 mg PO BID 09/26/19 [History] ALPRAZolam [Xanax] 0.25 mg PO BID PRN 07/07/20 [History] Ascorbic Acid [Vitamin C] 250 mg PO BID 07/07/20 [History] Iron,Carbonyl/Ascorbic Acid [Iron 100-Vitamin C Tablet] 1 each PO BID 07/07/20 [History] Nitroglycerin [Nitrostat] 0.4 mg SL ASDIRECTED PRN 07/07/20 [History] Nystatin [Nyamyc] 1 dose TP BID PRN 07/07/20 [History] Pantoprazole Sodium [Protonix] 40 mg PO DAILY 07/07/20 [History] dexAMETHasone [Decadron] 6 mg PO DAILY #9 tablet 07/07/20 [Rx] Past Medical History Cardiovascular History: Reports: Hypertension Other Gastrointestinal History: dysphagia. intestinal diverticular abscess. nausea/vomiting Genitourinary History: Reports: Chronic Renal Insuffiency Musculoskeletal History: Reports: Gout Other Musculoskeletal History: bilateral lower leg edema. venous ulcer of right leg Psychiatric History: Reports: Anxiety Endocrine/Metabolic History: Reports: Obesity/BMI 30+ Other Endocrine/Metabolic History: adrenal adenoma - Infectious Disease History Infectious Disease History: Reports: Novel Coronavirus Social & Family History - Family History Family Medical History: No Pertinent Family History ED ROS GENERAL - Review of Systems Review Of Systems: See Below Constitutional: Reports: No Symptoms HEENT: Reports: No Symptoms Respiratory: Reports: No Symptoms Cardiovascular: Reports: No Symptoms Endocrine: Reports: No Symptoms GI/Abdominal: Reports: No Symptoms : Reports: No Symptoms Musculoskeletal: Reports: Joint Pain Skin: Reports: No Symptoms Neurological: Reports: No Symptoms Psychiatric: Reports: No Symptoms Hematologic/Lymphatic: Reports: No Symptoms Immunologic: Reports: No Symptoms ED EXAM, GENERAL - Physical Exam Exam: See Below Exam Limited By: No Limitations General Appearance: Alert, WD/WN, No Apparent Distress Extremities: Normal Inspection, Leg Pain (L hip pain), Limited Range of Motion Neurological: Alert, Oriented, CN II-XII Intact, Normal Cognition, Normal Gait, Normal Reflexes, No Motor/Sensory Deficits Skin Exam: Warm, Dry, Intact, Normal Color, No Rash Lymphatic: No Adenopathy Course - Vital Signs Last Recorded V/S: Last Vital Signs Temp 36.6 C 02/05/21 19:40 Pulse 77 02/05/21 19:40 Resp 12 02/05/21 19:40 BP 166/77 H 02/05/21 19:40 Pulse Ox 96 02/05/21 19:40 - Orders/Labs/Meds Orders: Active Orders 24 hr Category Date Time Status Sodium Chloride 0.9% [Saline Flush] Med 02/05/21 19:38 Active 10 ml FLUSH ASDIRECTED PRN Peripheral IV Insertion Adult [OM.PC] Routine Oth 02/05/21 19:38 Ordered Medication Orders Sodium Chloride (Sodium Chloride 0.9% 10 Ml Syringe) 10 ml FLUSH ASDIRECTED PRN PRN Reason: Keep Vein Open Meds: Medications Generic Name Dose Route Start Last Admin Trade Name Freq PRN Reason Stop Dose Admin Sodium Chloride 10 ml 02/05/21 19:38 Sodium Chloride 0.9% 10 Ml Syringe FLUSH ASDIRECTED PRN Keep Vein Open Discontinued Medications Generic Name Dose Route Start Last Admin Trade Name Freq PRN Reason Stop Dose Admin Hydrocodone Bitart/Acetaminophen 1 packet 02/05/21 21:14 Take Home: Acetaminophen/Hydrocodone 325-10 Mg, 5 Tab Pack PO 02/05/21 21:15 ONETIME ONE Hydromorphone HCl 1 mg 02/05/21 19:38 02/05/21 19:45 Hydromorphone 1 Mg/Ml Syringe IVPUSH 02/05/21 19:39 1 mg ONETIME ONE Administration Hydromorphone HCl 1 mg 02/05/21 20:05 02/05/21 20:15 Hydromorphone 1 Mg/Ml Syringe IVPUSH 02/05/21 20:06 1 mg ONETIME ONE Administration - Radiology Interpretation Free Text/Narrative:: Radiographs of pelvis and R hip were obtained. No acute fracture was noted. Pt. noted to have severe osteoarthritis. Departure - Departure Time of Disposition: 21:30 Disposition: Home, Self-Care 01 Clinical Impression: Chronic hip pain - Discharge Information Instructions: Hip Pain Referrals: Daja Helm DO [Primary Care Provider] - Forms: ED Department Discharge Additional Instructions: Stop tramadol Start [place] 10/325mg 1 tab every 4-6 hours as needed for pain Follow-up with Dr. Helm to discuss pain control and possibility of having the surgery done soon, with post op swing bed admission. Start an over the counter stool softener, as this medication can cause constipation. Sepsis Event Note (ED) - Focused Exam Vital Signs: Vital Signs Temp Pulse Resp BP Pulse Ox 02/05/21 19:40 36.6 C 77 12 166/77 H 96 - Problem List Review Problem List Initiated/Reviewed/Updated: Yes - My Orders Last 24 Hours: My Active Orders 02/05/21 19:38 Sodium Chloride 0.9% [Saline Flush] 10 ml FLUSH ASDIRECTED PRN Peripheral IV Insertion Adult [OM.PC] Routine - Assessment/Plan Last 24 Hours: My Active Orders 02/05/21 19:38 Sodium Chloride 0.9% [Saline Flush] 10 ml FLUSH ASDIRECTED PRN Peripheral IV Insertion Adult [OM.PC] Routine Plan: Pt. will be discharged. She states that her pain is at 5 max after 2 doses of IV dilaudid. Pt. will be started on [place] 10/325mg with instructions to take 1 pill every 4-5 hours. She was given 5 tabs for take home tonight and a script for 14 to fill tomorrow. Pt. and Sister had numerous questions about her pending hip surgery, her rehab potential, and how hard it will be to rehab after surgery. Advised them to follow-up with Dr. Helm regarding possible swingbed admission after the operation. Pt. lives by herself in a house and relies heavily on her elderly sister for help. Pt. is quite deconditioned and would likely benefit from post op rehab in swingbed. They are also wondering it there is a possibility that the surgery can be pushed up. Again, she will be to discuss this with her PCP and surgeon if this is something she is interested in.
[2021-02-05 20:03] VITALS: BP 166/77; PULSE 77
--- NOTE | 2021-02-05 20:15 | CR ---
[id number] RAD/RAD Pelvis 1V W 2V Right Hip EXAM: RAD Pelvis 1V W 2V Right Hip INDICATION: RIGHT HIP PAIN. COMPARISON: None. FINDINGS: Soft tissue attenuation limits this exam. There is advanced osteoarthritis of the right hip with prominent osteophyte formation, acetabular remodeling and [id number] apposition. No fracture or dislocation is identified. Enthesopathy off the anterior aspect of the iliac crest and anterior superior iliac spine. Benign-appearing stress reaction or periosteal reaction along the dorsal aspect of the proximal femoral shaft. IMPRESSION: 1. Advanced osteoarthritis. Felipe Salcido MD [id number]/05/[id number] Thank you for allowing us to participate in the care of your patient.
[2021-02-05] MEDS ORDERED: Take Home: Acetaminophen/HYDROcodone 325-10 MG, 5 Tab Pack PO ONE (21:14)
== END 2021-02-05 21:28 | disposition home or self-care (01) ==
LOC: VM.ED 19:33
DX: M25.551 Pain in right hip (principal); G89.29 Other chronic pain; I12.9 Hypertensive chronic kidney disease with stage 1 through stage 4 chronic kidney disease, or unspecified chronic kidney disease; N18.9 Chronic kidney disease, unspecified; M10.9 Gout, unspecified; E66.9 Obesity, unspecified; Z68.41 Body mass index [BMI] 40.0-44.9, adult; Z86.16 Personal history of COVID-19; Z79.82 Long term (current) use of aspirin; Z79.02 Long term (current) use of antithrombotics/antiplatelets; Z79.899 Other long term (current) drug therapy
CPT/HCPCS: 96374; 99283; 99283-25; A9270-GY; J1170

== ENCOUNTER 2021-03-24 13:53 | Inpatient (IN) | payer MEDICARE, BC ==
[2021-03-24] MEDS ORDERED: Nitroglycerin 0.4 MG Tab.SL SL PRN (16:01)
[2021-03-24] MEDS: Acetaminophen 325 MG Tab PO PRN ×2 (16:13→21:58)
[2021-03-24] MEDS: Carvedilol 6.25 MG Tab PO SCH (17:27)
[2021-03-24] MEDS: Ferrous Sulfate 325 MG Tab PO SCH (20:56)
[2021-03-24] MEDS: Ascorbic Acid 500 MG Tab PO SCH (20:58)
[2021-03-24] MEDS: hydrALAZINE 25 MG Tab PO SCH (21:00)
[2021-03-25] MEDS: traMADol 50 MG Tab PO PRN (06:27)
[2021-03-25] MEDS ORDERED: CINNAMON BARK 1000 MG PO SCH (08:00)
[2021-03-25] MEDS: Carvedilol 6.25 MG Tab PO SCH ×2 (08:05→17:54)
[2021-03-25] MEDS: Acetaminophen 325 MG Tab PO PRN ×3 (08:05→22:24)
[2021-03-25] MEDS: Clopidogrel 75 MG Tab PO SCH (08:06)
[2021-03-25] MEDS: Folic Acid 0.4 MG Tab PO SCH (08:06)
[2021-03-25] MEDS: Ferrous Sulfate 325 MG Tab PO SCH ×2 (08:06→19:56)
[2021-03-25] MEDS: hydrALAZINE 25 MG Tab PO SCH ×3 (08:06→19:56)
[2021-03-25] MEDS: Bumetanide 1 MG Tab PO SCH ×2 (08:06→14:08)
[2021-03-25] MEDS: Ascorbic Acid 500 MG Tab PO SCH ×2 (08:07→19:56)
[2021-03-25] MEDS: Pantoprazole 40 MG Tab.CR PO SCH (08:07)
[2021-03-25] MEDS: Multivitamins with Iron/Calcium/Folic Acid/Minerals Tab PO SCH (08:07)
[2021-03-25] MEDS: Aspirin 81 MG Tab.EC PO SCH (08:16)
--- NOTE | 2021-03-25 10:32 | PCM.HP.2 ---
H&P History of Present Illness - General Date of Service: 03/25/21 Admit Problem/Dx: Admission Diagnosis/Problem Admission Diagnosis/Problem Status post right hip replacement Source of Information: Patient, Old Records History Limitations: Reports: No Limitations - History of Present Illness Initial Comments - Free Text/Narative: 75 year old female admitted to swing bed following a right ALEXANDREA Pt underwent an anterior right ALEXANDREA on 03/11/[address] Rodriguez at in [place]. No surgical complications were noted.Post op pain was managed with oxycodone. pt participated in therapy. On PAD #6 patient was noted to be confused. Hospitalist was consulted. Hgb was at 7.2. Cr + 2.61 Opioids felt to be contributing to confusion. Oxycodone discontinued. Tramadol started. On POD #8 pt transfused 2 untis of pRBC - confusion slowly improves. Pt transferred on POD #13. Right Hip Pain Score (Numeric/FACES): 5 - Related Data Allergies/Adverse Reactions: Allergies Allergy/AdvReac Type Severity Reaction Status Date / Time Cephalosporins Allergy Rash Verified 03/24/21 14:39 metoprolol Allergy Hives Verified 03/24/21 14:39 amlodipine AdvReac Joint Pain Verified 03/24/21 14:39 atorvastatin AdvReac Muscle Verified 03/24/21 14:39 Aches olmesartan [From Benicar] AdvReac GI Verified 03/24/21 14:39 INTOLERANCE sertraline AdvReac GI Verified 03/24/21 14:39 INTOLERANCE Home Medications: Home Meds Doxazosin [Doxazosin Mesylate] 1.5 mg PO DAILY 09/21/19 [History] hydrALAZINE [Apresoline] 50 mg PO TID 09/21/19 [History] Acetaminophen [Tylenol] 650 mg PO Q4H PRN 09/26/19 [History] Aspirin [Ecotrin EC] 81 mg PO DAILY 09/26/19 [History] Clopidogrel [Plavix] 75 mg PO DAILY 09/26/19 [History] Rosuvastatin [Crestor] 10 mg PO DAILY@1800 09/26/19 [History] carvediloL [Carvedilol] 12.5 mg PO BIDMEALS 09/26/19 [History] ALPRAZolam [Xanax] 0.125 mg PO BID PRN 07/07/20 [History] Ascorbic Acid [Vitamin C] 250 mg PO BID 07/07/20 [History] Iron,Carbonyl/Ascorbic Acid [Iron 100-Vitamin C Tablet] 1 tab PO BID 07/07/20 [History] Nitroglycerin [Nitrostat] 0.4 mg SL ASDIRECTED PRN 07/07/20 [History] Nystatin [Nyamyc] 1 applic TOP BID PRN 07/07/20 [History] Pantoprazole Sodium [Protonix] 20 mg PO DAILY 07/07/20 [History] Bumetanide 0.5 mg PO DAILY@1400 03/24/21 [History] Bumetanide 1 mg PO DAILY 03/24/21 [History] Cinnamon Bark [Cinnamon] 1,000 mg PO DAILY 03/24/21 [History] Folic Acid 0.8 mg PO DAILY 03/24/21 [History] Multivitamin [Multi-Vitamin Daily] 1 tab PO DAILY 03/24/21 [History] traMADol [Ultram] 50 mg PO Q6H PRN 03/24/21 [History] Past Medical History HEENT History: Reports: Hard of Hearing, Impaired Vision Cardiovascular History: Reports: CAD, Heart Failure (chronic diastolic), High Cholesterol, Hypertension Other Gastrointestinal History: dysphagia. intestinal diverticular abscess. nausea/vomiting Genitourinary History: Reports: Chronic Renal Insuffiency, Urinary Incontinence, Other (See Below) Other Genitourinary History: CKD Musculoskeletal History: Reports: Gout Other Musculoskeletal History: bilateral lower leg edema. venous ulcer of right leg Psychiatric History: Reports: Anxiety Endocrine/Metabolic History: Reports: Obesity/BMI 30+ Other Endocrine/Metabolic History: adrenal adenoma Hematologic History: Reports: Anemia - Infectious Disease History Infectious Disease History: Reports: Chicken Pox, Measles, Novel Coronavirus - Past Surgical History Cardiovascular Surgical History: Reports: Coronary Artery Stent Social & Family History - Family History Family Medical History: No Pertinent Family History - Tobacco Use Tobacco Use Status *Q: Never Tobacco User - Caffeine Use Caffeine Use: Reports: Tea - Recreational Drug Use Recreational Drug Use: No H&P Review of Systems - Review of Systems: Review Of Systems: See Below General: Denies: Fever, Chills HEENT: Reports: No Symptoms Pulmonary: Denies: Shortness of Breath, Cough Cardiovascular: Denies: Chest Pain Gastrointestinal: Reports: Nausea. Denies: Constipation, Diarrhea Genitourinary: Reports: No Symptoms Musculoskeletal: Reports: Joint Pain Skin: Reports: No Symptoms Psychiatric: Reports: No Symptoms Neurological: Reports: No Symptoms. Denies: Confusion Exam - Exam Exam: See Below - Vital Signs Vital Signs: Last Vital Signs Temp 36.7 C 03/25/21 06:00 Pulse 65 03/25/21 08:05 Resp 18 03/25/21 06:00 BP 148/52 H 03/25/21 08:07 Pulse Ox 96 03/25/21 06:00 Weight: 98.5 kg - Exam General: Alert, Oriented HEENT: Conjunctiva Clear Neck: Supple Lungs: Clear to Auscultation, Normal Respiratory Effort Cardiovascular: Regular Rate, Regular Rhythm GI/Abdominal Exam: Normal Bowel Sounds, Soft Extremities: Normal Inspection, No Pedal Edema, Other (mild contact dermatitis correlating with donovan socks band - noted bilaterally) Skin: Warm, Dry Neurological: Cranial Nerves Intact, Normal Speech Neuro Extensive - Mental Status: Alert - Patient Data Lab Results Last 24 hrs: Laboratory Results - last 24 hr 03/24/21 Range/Units 16:54 SARS CoV-2 RNA Rapid YARA Negative (NEGATIVE) Sepsis Event Note - Evaluation Sepsis Screening Result: No Definite Risk - Focused Exam Vital Signs: Vital Signs Temp Pulse Pulse Resp BP BP Pulse Ox 03/25/21 08:07 148/52 H 03/25/21 08:06 148/48 H 03/25/21 08:05 65 148/48 H 03/25/21 06:00 36.7 C 65 18 148/48 H 96 - Problem List (1) Status post hip replacement SNOMED Code(s): 958109527, 046566526, 380891068, 318045480 ICD Code: Z96.649 - PRESENCE OF UNSPECIFIED ARTIFICIAL HIP JOINT Status: Acute Current Visit: Yes (2) CAD (coronary artery disease) SNOMED Code(s): 29971827 ICD Code: I25.10 - ATHSCL HEART DISEASE OF [place] CORONARY ARTERY W/O ANG PCTRS Status: Chronic Current Visit: Yes Qualifiers: Coronary Disease-Associated Artery/Lesion type: [place] artery [place] vs. transplanted heart: [place] heart Associated angina: without angina Qualified Code(s): I25.10 - Atherosclerotic heart disease of [place] coronary artery without angina pectoris (3) CRF (chronic renal failure) SNOMED Code(s): 46259045 ICD Code: N18.9 - CHRONIC KIDNEY DISEASE, UNSPECIFIED Status: Chronic Current Visit: No Qualifiers: Chronic kidney disease stage: stage 4 (severe) Qualified Code(s): N18.4 - Chronic kidney disease, stage 4 (severe) (4) Congestive heart failure SNOMED Code(s): 75276431 ICD Code: I50.9 - HEART FAILURE, UNSPECIFIED Status: Chronic Priority: Low Current Visit: No Qualifiers: Qualified Code(s): I50.9 - Heart failure, unspecified Problem List Initiated/Reviewed/Updated: Yes Orders Last 24hrs: Active Orders 24 hr Category Date Time Status Patient Status [ADT] Routine ADT 03/24/21 15:55 Active Activity as Tolerated [RC] Care 03/24/21 14:20 Active Communication Order [RC] Care 03/24/21 14:20 Active Oxygen Therapy [RC] .PRN Care 03/24/21 15:58 Active Oxygen Therapy [RC] PRN Care 03/24/21 15:55 Active Up With Assistance [RC] Care 03/24/21 15:58 Active VTE/DVT Education [RC] .PRN Care 03/24/21 15:58 Active VTE/DVT Education [RC] PER UNIT ROUTINE Care 03/24/21 15:55 Active Vital Signs [RC] , Care 03/24/21 15:55 Active Vital Signs [RC] PER UNIT ROUTINE Care 03/24/21 15:58 Active Consult to Physical Therapy [PT Evaluation and Cons 03/24/21 14:18 Active Treatment] [CONS] Routine OT Evaluation and Treatment [CONS] Routine Cons 03/24/21 14:18 Active Regular Diet [DIET] Diet 03/24/21 Dinner Active ALPRAZolam [Xanax] Med 03/24/21 16:01 Active 0.125 mg PO BID PRN Acetaminophen [TylenoL] Med 03/24/21 16:01 Active 650 mg PO Q4H PRN Ascorbic Acid [Vitamin C] Med 03/24/21 20:00 Active 250 mg PO BID Aspirin [Halfprin] Med 03/25/21 08:00 Active 81 mg PO DAILY Bumetanide [Bumex] Med 03/25/21 14:00 Active 0.5 mg PO DAILY@1400 Bumetanide [Bumex] Med 03/25/21 08:00 Active 1 mg PO DAILY Cinnamon Bark [Cinnamon] Med 03/25/21 08:00 Active 0 mg PO DAILY Clopidogrel [Plavix] Med 03/25/21 08:00 Active 75 mg PO DAILY Doxazosin [Cardura] Med 03/25/21 08:00 Active 1.5 mg PO DAILY Ferrous Sulfate Med 03/24/21 20:00 Active 325 mg PO BID Folic Acid Med 03/25/21 08:00 Active 0.8 mg PO DAILY Miconazole [Desenex 2%] Med 03/24/21 16:01 Active 0 gm TOP BID PRN Multivitamins w-Iron/Ca/FA/Min [Thera M Plus] Med 03/25/21 08:00 Active 1 tab PO DAILY Nitroglycerin [Nitrostat] Med 03/24/21 16:01 Active 0.4 mg SL ASDIRECTED PRN Pantoprazole [ProTONIX] Med 03/25/21 08:00 Active 20 mg PO DAILY Rosuvastatin [Crestor] Med 03/25/21 18:00 Active 0 mg PO DAILY@1800 carvediloL [Coreg] Med 03/24/21 18:00 Active 12.5 mg PO BIDMEALS hydrALAZINE [Apresoline] Med 03/24/21 20:00 Active 50 mg PO TID traMADol [Ultram] Med 03/24/21 16:01 Active 50 mg PO Q6H PRN Code Status [Resuscitation Status] Routine Resus Stat 03/24/21 14:01 Ordered Medication Orders Acetaminophen (Acetaminophen 325 Mg Tab) 650 mg PO Q4H PRN PRN Reason: Pain Last Admin: 03/25/21 08:05 Dose: 650 mg Documented by: Admin: 03/24/21 21:58 Dose: 650 mg Documented by: Admin: 03/24/21 16:13 Dose: 650 mg Documented by: JAMAL Alprazolam (Alprazolam 0.25 Mg Tab) 0.125 mg PO BID PRN PRN Reason: Anxiety Ascorbic Acid (Ascorbic Acid 500 Mg Tab) 250 mg PO BID [facility] Last Admin: 03/25/21 08:07 Dose: 250 mg Documented by: Admin: 03/24/21 20:58 Dose: 250 mg Documented by: FABIOLA Aspirin (Aspirin 81 Mg Tab.Ec) 81 mg PO DAILY [facility] Last Admin: 03/25/21 08:16 Dose: 81 mg Documented by: JAMAL Bumetanide (Bumetanide 1 Mg Tab) 0.5 mg PO DAILY@1400 [facility] Bumetanide (Bumetanide 1 Mg Tab) 1 mg PO DAILY [facility] Last Admin: 03/25/21 08:06 Dose: 1 mg Documented by: JAMAL Carvedilol (Carvedilol 6.25 Mg Tab) 12.5 mg PO BIDMEALS [facility] Last Admin: 03/25/21 08:05 Dose: 12.5 mg Documented by: Admin: 03/24/21 17:27 Dose: 12.5 mg Documented by: JAMAL Clopidogrel Bisulfate (Clopidogrel 75 Mg Tab) 75 mg PO DAILY [facility] Last Admin: 03/25/21 08:06 Dose: 75 mg Documented by: JAMAL Doxazosin Mesylate (Doxazosin 1 Mg Tab) 1.5 mg PO DAILY [facility] Last Admin: 03/25/21 08:07 Dose: 1.5 mg Documented by: JAMAL Ferrous Sulfate (Ferrous Sulfate 325 Mg Tab) 325 mg PO BID [facility] Last Admin: 03/25/21 08:06 Dose: 325 mg Documented by: Admin: 03/24/21 20:56 Dose: 325 mg Documented by: FABIOLA Folic Acid (Folic Acid 0.4 Mg Tab) 0.8 mg PO DAILY [facility] Last Admin: 03/25/21 08:06 Dose: 0.8 mg Documented by: JAMAL Hydralazine HCl (Hydralazine 25 Mg Tab) 50 mg PO TID [facility] Last Admin: 03/25/21 08:06 Dose: 50 mg Documented by: Admin: 03/24/21 21:00 Dose: 50 mg Documented by: FABIOLA Miconazole (Miconazole 2% Top Powder 45 Gm Container) 0 gm TOP BID PRN PRN Reason: Rash Multivitamins/Minerals (Multivitamins With Iron/Calcium/Folic Acid/Minerals Tab) 1 tab PO DAILY [facility] Last Admin: 03/25/21 08:07 Dose: 1 tab Documented by: JAMAL Nitroglycerin (Nitroglycerin 0.4 Mg Tab.Sl) 0.4 mg SL ASDIRECTED PRN PRN Reason: Chest Pain Cinnamon Bark [ Cinnamon] 500 Mg ( Own Supply) 0 mg PO DAILY [facility] Rosuvastatin [ Crestor] 10 Mg Tablet (Own Supply) 0 mg PO DAILY@1800 [facility] Pantoprazole Sodium (Pantoprazole 40 Mg Tab.Cr) 20 mg PO DAILY [facility] Last Admin: 03/25/21 08:07 Dose: 20 mg Documented by: JAMAL Tramadol HCl (Tramadol 50 Mg Tab) 50 mg PO Q6H PRN PRN Reason: Pain Last Admin: 03/25/21 06:27 Dose: 50 mg Documented by: FABIOLA Assessment/Plan Comment:: 1. S/p right ALEXANDREA 2. Nausea - chronic 3. CKD- IV 4. CAD with bare metal stent with demand ischemia 5. Chronic diastolic CHF Plan: Patient will be admitted to swing bed Therapies ordered Desires FULL CODE Will continue tramadol for pain Zofran ordered for nausea
[2021-03-25] MEDS: Ondansetron 4 MG Tab.DIS PO PRN (11:20)
[2021-03-25] MEDS: CINNAMON BARK 1000 MG PO SCH (19:55)
[2021-03-25] MEDS: ROSUVASTATIN 10 MG PO SCH (19:55)
[2021-03-26] MEDS: Acetaminophen 325 MG Tab PO PRN ×3 (06:07→19:57)
[2021-03-26] MEDS: Ascorbic Acid 500 MG Tab PO SCH ×2 (08:16→19:53)
[2021-03-26] MEDS: Aspirin 81 MG Tab.EC PO SCH (08:16)
[2021-03-26] MEDS: Pantoprazole 40 MG Tab.CR PO SCH (08:18)
[2021-03-26] MEDS: Clopidogrel 75 MG Tab PO SCH (08:18)
[2021-03-26] MEDS: Folic Acid 0.4 MG Tab PO SCH (08:18)
[2021-03-26] MEDS: Multivitamins with Iron/Calcium/Folic Acid/Minerals Tab PO SCH (08:19)
[2021-03-26] MEDS: Bumetanide 1 MG Tab PO SCH ×2 (08:20→13:11)
[2021-03-26] MEDS: Ferrous Sulfate 325 MG Tab PO SCH ×2 (08:20→19:53)
[2021-03-26] MEDS: hydrALAZINE 25 MG Tab PO SCH ×3 (08:20→19:56)
[2021-03-26] MEDS: Carvedilol 6.25 MG Tab PO SCH ×2 (08:21→18:28)
[2021-03-26] MEDS: traMADol 50 MG Tab PO PRN (10:46)
[2021-03-26] MEDS: Ondansetron 4 MG Tab.DIS PO PRN (11:30)
[2021-03-26] MEDS: ROSUVASTATIN 10 MG PO SCH (19:54)
[2021-03-26] MEDS: CINNAMON BARK 1000 MG PO SCH (19:54)
[2021-03-27] MEDS: Acetaminophen 325 MG Tab PO PRN ×3 (06:13→22:18)
[2021-03-27] MEDS: Folic Acid 0.4 MG Tab PO SCH (08:15)
[2021-03-27] MEDS: Bumetanide 1 MG Tab PO SCH ×2 (08:15→13:01)
[2021-03-27] MEDS: Aspirin 81 MG Tab.EC PO SCH (08:16)
[2021-03-27] MEDS: hydrALAZINE 25 MG Tab PO SCH ×3 (08:16→19:29)
[2021-03-27] MEDS: Clopidogrel 75 MG Tab PO SCH (08:16)
[2021-03-27] MEDS: Ascorbic Acid 500 MG Tab PO SCH ×2 (08:17→19:28)
[2021-03-27] MEDS: Multivitamins with Iron/Calcium/Folic Acid/Minerals Tab PO SCH (08:18)
[2021-03-27] MEDS: Carvedilol 6.25 MG Tab PO SCH ×2 (08:18→17:33)
[2021-03-27] MEDS: traMADol 50 MG Tab PO PRN (08:19)
[2021-03-27] MEDS: Ferrous Sulfate 325 MG Tab PO SCH ×2 (08:19→19:28)
[2021-03-27] MEDS: Ondansetron 4 MG Tab.DIS PO PRN (08:20)
[2021-03-27] MEDS: Miconazole 2% Top Powder 45 GM Container TOP PRN ×2 (09:00→22:19)
[2021-03-27] MEDS: Pantoprazole 40 MG Tab.CR PO SCH (10:48)
[2021-03-27] MEDS: Acetaminophen/HYDROcodone 325-5 MG Tab PO PRN (19:28)
[2021-03-27] MEDS: CINNAMON BARK 1000 MG PO SCH (19:30)
[2021-03-27] MEDS: ROSUVASTATIN 10 MG PO SCH (19:31)
[2021-03-28] MEDS: Aspirin 81 MG Tab.EC PO SCH (07:54)
[2021-03-28] MEDS: Folic Acid 0.4 MG Tab PO SCH (07:54)
[2021-03-28] MEDS: Bumetanide 1 MG Tab PO SCH ×2 (07:55→13:44)
[2021-03-28] MEDS: Clopidogrel 75 MG Tab PO SCH (07:55)
[2021-03-28] MEDS: hydrALAZINE 25 MG Tab PO SCH ×3 (07:55→19:25)
[2021-03-28] MEDS: Ondansetron 4 MG Tab.DIS PO PRN ×2 (07:55→11:57)
[2021-03-28] MEDS: Carvedilol 6.25 MG Tab PO SCH ×2 (07:56→17:25)
[2021-03-28] MEDS: Ascorbic Acid 500 MG Tab PO SCH ×2 (07:56→19:24)
[2021-03-28] MEDS: Acetaminophen/HYDROcodone 325-5 MG Tab PO PRN ×2 (07:56→11:55)
[2021-03-28] MEDS: Ferrous Sulfate 325 MG Tab PO SCH ×2 (07:56→19:25)
[2021-03-28] MEDS: Multivitamins with Iron/Calcium/Folic Acid/Minerals Tab PO SCH (07:56)
[2021-03-28] MEDS: Acetaminophen 325 MG Tab PO PRN ×3 (08:46→22:16)
[2021-03-28] MEDS ORDERED: PANTOPRAZOLE 20 MG PO SCH (10:00)
[2021-03-28] MEDS: ROSUVASTATIN 10 MG PO SCH (19:26)
[2021-03-28] MEDS: CINNAMON BARK 1000 MG PO SCH (19:26)
[2021-03-28] MEDS: Miconazole 2% Top Powder 45 GM Container TOP PRN (19:29)
[2021-03-29] MEDS: Acetaminophen 325 MG Tab PO PRN ×3 (07:39→17:58)
[2021-03-29] MEDS: hydrALAZINE 25 MG Tab PO SCH ×3 (07:39→19:52)
[2021-03-29] MEDS: Aspirin 81 MG Tab.EC PO SCH (07:39)
[2021-03-29] MEDS: Multivitamins with Iron/Calcium/Folic Acid/Minerals Tab PO SCH (07:39)
[2021-03-29] MEDS: Folic Acid 0.4 MG Tab PO SCH (07:39)
[2021-03-29] MEDS: Bumetanide 1 MG Tab PO SCH ×2 (07:40→14:57)
[2021-03-29] MEDS: Ferrous Sulfate 325 MG Tab PO SCH ×2 (07:40→19:52)
[2021-03-29] MEDS: Clopidogrel 75 MG Tab PO SCH (07:40)
[2021-03-29] MEDS: Carvedilol 6.25 MG Tab PO SCH ×2 (07:40→17:25)
[2021-03-29] MEDS: Ascorbic Acid 500 MG Tab PO SCH ×2 (07:41→19:52)
[2021-03-29] MEDS: Ondansetron 4 MG Tab.DIS PO PRN (07:48)
[2021-03-29] MEDS: CINNAMON BARK 1000 MG PO SCH (19:53)
[2021-03-29] MEDS: ROSUVASTATIN 10 MG PO SCH (19:53)
[2021-03-29] MEDS: Miconazole 2% Top Powder 45 GM Container TOP PRN (19:55)
[2021-03-29] MEDS: Acetaminophen/HYDROcodone 325-5 MG Tab PO PRN (19:56)
[2021-03-30] MEDS: Acetaminophen/HYDROcodone 325-5 MG Tab PO PRN ×3 (02:03→22:34)
[2021-03-30] MEDS: Acetaminophen 325 MG Tab PO PRN ×3 (05:06→19:28)
[2021-03-30] MEDS: Folic Acid 0.4 MG Tab PO SCH (08:12)
[2021-03-30] MEDS: hydrALAZINE 25 MG Tab PO SCH ×3 (08:14→19:25)
[2021-03-30] MEDS: Aspirin 81 MG Tab.EC PO SCH (08:14)
[2021-03-30] MEDS: Carvedilol 6.25 MG Tab PO SCH ×2 (08:15→17:29)
[2021-03-30] MEDS: Bumetanide 1 MG Tab PO SCH ×2 (08:15→13:54)
[2021-03-30] MEDS: Ascorbic Acid 500 MG Tab PO SCH ×2 (08:15→19:28)
[2021-03-30] MEDS: Ferrous Sulfate 325 MG Tab PO SCH ×2 (08:15→19:25)
[2021-03-30] MEDS: Clopidogrel 75 MG Tab PO SCH (08:16)
[2021-03-30] MEDS: Miconazole 2% Top Powder 45 GM Container TOP PRN (08:16)
[2021-03-30] MEDS: Multivitamins with Iron/Calcium/Folic Acid/Minerals Tab PO SCH (08:16)
[2021-03-30] MEDS: Ondansetron 4 MG Tab.DIS PO PRN ×2 (08:17→19:26)
[2021-03-30] MEDS: ROSUVASTATIN 10 MG PO SCH (19:27)
[2021-03-30] MEDS: CINNAMON BARK 1000 MG PO SCH (19:27)
[2021-03-31] MEDS: Acetaminophen 325 MG Tab PO PRN ×5 (02:43→20:18)
[2021-03-31] MEDS: hydrALAZINE 25 MG Tab PO SCH ×3 (07:36→20:16)
[2021-03-31] MEDS: Multivitamins with Iron/Calcium/Folic Acid/Minerals Tab PO SCH (07:36)
[2021-03-31] MEDS: Aspirin 81 MG Tab.EC PO SCH (07:36)
[2021-03-31] MEDS: Ferrous Sulfate 325 MG Tab PO SCH ×2 (07:36→20:18)
[2021-03-31] MEDS: Folic Acid 0.4 MG Tab PO SCH (07:36)
[2021-03-31] MEDS: Ondansetron 4 MG Tab.DIS PO PRN ×2 (07:36→20:17)
[2021-03-31] MEDS: Carvedilol 6.25 MG Tab PO SCH ×2 (07:36→17:23)
[2021-03-31] MEDS: Ascorbic Acid 500 MG Tab PO SCH ×2 (07:37→20:16)
[2021-03-31] MEDS: Bumetanide 1 MG Tab PO SCH ×2 (07:38→13:42)
[2021-03-31] MEDS: Clopidogrel 75 MG Tab PO SCH (07:39)
[2021-03-31] MEDS: Acetaminophen/HYDROcodone 325-5 MG Tab PO PRN ×2 (09:16→23:06)
[2021-03-31] MEDS: CINNAMON BARK 1000 MG PO SCH (20:17)
[2021-03-31] MEDS: ROSUVASTATIN 10 MG PO SCH (20:20)
[2021-04-01] MEDS: Acetaminophen 325 MG Tab PO PRN ×4 (03:49→17:47)
[2021-04-01] MEDS: Pantoprazole 20 MG Tab, Delayed Release PO SCH (06:17)
[2021-04-01] MEDS: Multivitamins with Iron/Calcium/Folic Acid/Minerals Tab PO SCH (08:08)
[2021-04-01] MEDS: Carvedilol 6.25 MG Tab PO SCH ×2 (08:10→17:47)
[2021-04-01] MEDS: Bumetanide 1 MG Tab PO SCH ×2 (08:14→13:27)
[2021-04-01] MEDS: Ferrous Sulfate 325 MG Tab PO SCH ×2 (08:14→20:24)
[2021-04-01] MEDS: Ondansetron 4 MG Tab.DIS PO PRN (08:16)
[2021-04-01] MEDS: Aspirin 81 MG Tab.EC PO SCH (08:16)
[2021-04-01] MEDS: Folic Acid 0.4 MG Tab PO SCH (08:16)
[2021-04-01] MEDS: Clopidogrel 75 MG Tab PO SCH (08:17)
[2021-04-01] MEDS: hydrALAZINE 25 MG Tab PO SCH ×3 (08:18→20:25)
[2021-04-01] MEDS: Ascorbic Acid 500 MG Tab PO SCH ×2 (08:19→20:24)
[2021-04-01] MEDS: Miconazole 2% Top Powder 45 GM Container TOP PRN ×2 (08:20→20:29)
[2021-04-01] MEDS: Acetaminophen/HYDROcodone 325-5 MG Tab PO PRN ×2 (11:51→21:53)
[2021-04-01] MEDS: CINNAMON BARK 1000 MG PO SCH (20:24)
[2021-04-01] MEDS: ROSUVASTATIN 10 MG PO SCH (20:26)
[2021-04-02] MEDS: Acetaminophen 325 MG Tab PO PRN ×3 (03:27→17:45)
[2021-04-02] MEDS: Pantoprazole 20 MG Tab, Delayed Release PO SCH (06:37)
[2021-04-02] MEDS: Ondansetron 4 MG Tab.DIS PO PRN (08:03)
[2021-04-02] MEDS: Acetaminophen/HYDROcodone 325-5 MG Tab PO PRN ×3 (08:43→22:13)
[2021-04-02] MEDS: Carvedilol 6.25 MG Tab PO SCH ×2 (08:45→17:43)
[2021-04-02] MEDS: Bumetanide 1 MG Tab PO SCH ×2 (08:46→14:15)
[2021-04-02] MEDS: Aspirin 81 MG Tab.EC PO SCH (08:47)
[2021-04-02] MEDS: Folic Acid 0.4 MG Tab PO SCH (08:47)
[2021-04-02] MEDS: Clopidogrel 75 MG Tab PO SCH (08:47)
[2021-04-02] MEDS: Multivitamins with Iron/Calcium/Folic Acid/Minerals Tab PO SCH (08:47)
[2021-04-02] MEDS: hydrALAZINE 25 MG Tab PO SCH ×3 (08:49→20:25)
[2021-04-02] MEDS: Ascorbic Acid 500 MG Tab PO SCH ×2 (08:50→20:24)
[2021-04-02] MEDS: Ferrous Sulfate 325 MG Tab PO SCH ×2 (08:51→20:25)
[2021-04-02] MEDS: Miconazole 2% Top Powder 45 GM Container TOP PRN ×2 (08:54→20:28)
[2021-04-02] MEDS: CINNAMON BARK 1000 MG PO SCH (20:26)
[2021-04-02] MEDS: Rosuvastatin 20 MG Tab PO SCH (20:27)
[2021-04-03] MEDS: Acetaminophen 325 MG Tab PO PRN ×2 (02:39→06:32)
[2021-04-03] MEDS: Pantoprazole 20 MG Tab, Delayed Release PO SCH (06:30)
[2021-04-03] MEDS: Multivitamins with Iron/Calcium/Folic Acid/Minerals Tab PO SCH (08:19)
[2021-04-03] MEDS: Acetaminophen/HYDROcodone 325-5 MG Tab PO PRN ×3 (08:19→22:21)
[2021-04-03] MEDS: Carvedilol 6.25 MG Tab PO SCH ×2 (08:20→17:33)
[2021-04-03] MEDS: Aspirin 81 MG Tab.EC PO SCH (08:20)
[2021-04-03] MEDS: Folic Acid 0.4 MG Tab PO SCH (08:20)
[2021-04-03] MEDS: Clopidogrel 75 MG Tab PO SCH (08:21)
[2021-04-03] MEDS: Ondansetron 4 MG Tab.DIS PO PRN (08:21)
[2021-04-03] MEDS: Ascorbic Acid 500 MG Tab PO SCH ×2 (08:21→19:53)
[2021-04-03] MEDS: Ferrous Sulfate 325 MG Tab PO SCH ×2 (08:21→19:53)
[2021-04-03] MEDS: hydrALAZINE 25 MG Tab PO SCH ×3 (08:21→19:55)
[2021-04-03] MEDS: Bumetanide 1 MG Tab PO SCH ×2 (08:22→15:44)
[2021-04-03] MEDS: CINNAMON BARK 1000 MG PO SCH (19:53)
[2021-04-03] MEDS: Rosuvastatin 20 MG Tab PO SCH (19:54)
[2021-04-03] MEDS: Miconazole 2% Top Powder 45 GM Container TOP PRN (19:57)
[2021-04-04] MEDS: Acetaminophen 325 MG Tab PO PRN ×4 (02:54→20:06)
[2021-04-04] MEDS: Pantoprazole 20 MG Tab, Delayed Release PO SCH (06:40)
[2021-04-04] MEDS: Aspirin 81 MG Tab.EC PO SCH (07:42)
[2021-04-04] MEDS: Folic Acid 0.4 MG Tab PO SCH (07:42)
[2021-04-04] MEDS: Multivitamins with Iron/Calcium/Folic Acid/Minerals Tab PO SCH (07:42)
[2021-04-04] MEDS: Ondansetron 4 MG Tab.DIS PO PRN (07:42)
[2021-04-04] MEDS: Carvedilol 6.25 MG Tab PO SCH ×2 (07:43→17:32)
[2021-04-04] MEDS: Bumetanide 1 MG Tab PO SCH ×2 (07:43→14:08)
[2021-04-04] MEDS: hydrALAZINE 25 MG Tab PO SCH ×3 (07:43→19:41)
[2021-04-04] MEDS: Ferrous Sulfate 325 MG Tab PO SCH ×2 (07:44→19:41)
[2021-04-04] MEDS: Clopidogrel 75 MG Tab PO SCH (07:44)
[2021-04-04] MEDS: Ascorbic Acid 500 MG Tab PO SCH ×2 (07:44→19:42)
[2021-04-04] MEDS: Acetaminophen/HYDROcodone 325-5 MG Tab PO PRN ×3 (09:37→22:49)
[2021-04-04] MEDS: CINNAMON BARK 1000 MG PO SCH (19:43)
[2021-04-04] MEDS: Rosuvastatin 20 MG Tab PO SCH (19:47)
[2021-04-05] MEDS: Acetaminophen 325 MG Tab PO PRN ×3 (05:24→20:36)
[2021-04-05] MEDS: Pantoprazole 20 MG Tab, Delayed Release PO SCH (06:02)
[2021-04-05] MEDS: Ascorbic Acid 500 MG Tab PO SCH ×2 (08:09→19:40)
[2021-04-05] MEDS: Aspirin 81 MG Tab.EC PO SCH (08:11)
[2021-04-05] MEDS: Multivitamins with Iron/Calcium/Folic Acid/Minerals Tab PO SCH (08:11)
[2021-04-05] MEDS: Folic Acid 0.4 MG Tab PO SCH (08:12)
[2021-04-05] MEDS: Ondansetron 4 MG Tab.DIS PO PRN (08:12)
[2021-04-05] MEDS: Clopidogrel 75 MG Tab PO SCH (08:12)
[2021-04-05] MEDS: Acetaminophen/HYDROcodone 325-5 MG Tab PO PRN ×3 (08:13→23:43)
[2021-04-05] MEDS: Bumetanide 1 MG Tab PO SCH ×2 (08:13→13:53)
[2021-04-05] MEDS: Ferrous Sulfate 325 MG Tab PO SCH ×2 (08:14→19:40)
[2021-04-05] MEDS: Carvedilol 6.25 MG Tab PO SCH ×2 (08:15→17:26)
[2021-04-05] MEDS: hydrALAZINE 25 MG Tab PO SCH ×3 (08:15→19:39)
[2021-04-05] MEDS: CINNAMON BARK 1000 MG PO SCH (19:39)
[2021-04-05] MEDS: Rosuvastatin 20 MG Tab PO SCH (19:42)
[2021-04-06] MEDS: Acetaminophen 325 MG Tab PO PRN ×3 (03:49→21:00)
[2021-04-06] MEDS: Acetaminophen/HYDROcodone 325-5 MG Tab PO PRN ×2 (06:22→12:49)
[2021-04-06] MEDS: Pantoprazole 20 MG Tab, Delayed Release PO SCH (06:22)
[2021-04-06] MEDS: Carvedilol 6.25 MG Tab PO SCH ×2 (07:54→17:47)
[2021-04-06] MEDS: Folic Acid 0.4 MG Tab PO SCH (07:55)
[2021-04-06] MEDS: Multivitamins with Iron/Calcium/Folic Acid/Minerals Tab PO SCH (07:55)
[2021-04-06] MEDS: Aspirin 81 MG Tab.EC PO SCH (07:55)
[2021-04-06] MEDS: Bumetanide 1 MG Tab PO SCH ×2 (07:56→14:38)
[2021-04-06] MEDS: hydrALAZINE 25 MG Tab PO SCH ×3 (07:57→19:37)
[2021-04-06] MEDS: Ferrous Sulfate 325 MG Tab PO SCH ×2 (07:57→19:38)
[2021-04-06] MEDS: Clopidogrel 75 MG Tab PO SCH (07:57)
[2021-04-06] MEDS: Ascorbic Acid 500 MG Tab PO SCH ×2 (07:57→19:37)
[2021-04-06] MEDS: CINNAMON BARK 1000 MG PO SCH (19:37)
[2021-04-06] MEDS: Rosuvastatin 20 MG Tab PO SCH (19:38)
[2021-04-06] MEDS: Miconazole 2% Top Powder 45 GM Container TOP PRN (19:39)
[2021-04-07] MEDS: Acetaminophen/HYDROcodone 325-5 MG Tab PO PRN ×3 (00:53→15:21)
[2021-04-07] MEDS: Acetaminophen 325 MG Tab PO PRN ×3 (04:44→21:09)
[2021-04-07] MEDS: Pantoprazole 20 MG Tab, Delayed Release PO SCH (06:33)
[2021-04-07] MEDS: Aspirin 81 MG Tab.EC PO SCH (07:39)
[2021-04-07] MEDS: Multivitamins with Iron/Calcium/Folic Acid/Minerals Tab PO SCH (07:40)
[2021-04-07] MEDS: Ascorbic Acid 500 MG Tab PO SCH ×2 (07:40→20:20)
[2021-04-07] MEDS: Folic Acid 0.4 MG Tab PO SCH (07:40)
[2021-04-07] MEDS: Ferrous Sulfate 325 MG Tab PO SCH ×2 (07:41→20:21)
[2021-04-07] MEDS: hydrALAZINE 25 MG Tab PO SCH ×3 (07:41→20:21)
[2021-04-07] MEDS: Clopidogrel 75 MG Tab PO SCH (07:41)
[2021-04-07] MEDS: Carvedilol 6.25 MG Tab PO SCH ×2 (07:41→17:00)
[2021-04-07] MEDS: Bumetanide 1 MG Tab PO SCH ×2 (07:42→15:21)
[2021-04-07] MEDS: Ondansetron 4 MG Tab.DIS PO PRN ×3 (07:53→20:30)
[2021-04-07] MEDS: CINNAMON BARK 1000 MG PO SCH (20:21)
[2021-04-07] MEDS: Rosuvastatin 20 MG Tab PO SCH (20:22)
[2021-04-07] MEDS: Miconazole 2% Top Powder 45 GM Container TOP PRN (20:22)
[2021-04-08] MEDS: Acetaminophen/HYDROcodone 325-5 MG Tab PO PRN ×5 (00:28→23:39)
[2021-04-08] MEDS: Acetaminophen 325 MG Tab PO PRN ×3 (04:31→19:52)
[2021-04-08] MEDS: Pantoprazole 20 MG Tab, Delayed Release PO SCH (06:13)
[2021-04-08] MEDS: Aspirin 81 MG Tab.EC PO SCH (07:54)
[2021-04-08] MEDS: Folic Acid 0.4 MG Tab PO SCH (07:54)
[2021-04-08] MEDS: Multivitamins with Iron/Calcium/Folic Acid/Minerals Tab PO SCH (07:54)
[2021-04-08] MEDS: Ferrous Sulfate 325 MG Tab PO SCH ×2 (07:54→19:48)
[2021-04-08] MEDS: Ascorbic Acid 500 MG Tab PO SCH ×2 (07:55→19:48)
[2021-04-08] MEDS: Carvedilol 6.25 MG Tab PO SCH ×2 (07:55→17:28)
[2021-04-08] MEDS: Bumetanide 1 MG Tab PO SCH ×2 (07:55→13:39)
[2021-04-08] MEDS: Clopidogrel 75 MG Tab PO SCH (07:55)
[2021-04-08] MEDS: hydrALAZINE 25 MG Tab PO SCH ×3 (07:55→19:46)
[2021-04-08] MEDS: Ondansetron 4 MG Tab.DIS PO PRN ×3 (07:56→19:47)
[2021-04-08] MEDS: Miconazole 2% Top Powder 45 GM Container TOP PRN (08:05)
[2021-04-08] MEDS: Rosuvastatin 20 MG Tab PO SCH (19:49)
[2021-04-08] MEDS: CINNAMON BARK 1000 MG PO SCH (23:47)
[2021-04-09] MEDS: Acetaminophen 325 MG Tab PO PRN ×5 (04:06→22:00)
[2021-04-09] MEDS: Bumetanide 1 MG Tab PO SCH ×3 (07:21→14:57)
[2021-04-09] MEDS: Folic Acid 0.4 MG Tab PO SCH (07:22)
[2021-04-09] MEDS: Ondansetron 4 MG Tab.DIS PO PRN ×3 (07:22→21:52)
[2021-04-09] MEDS: Ferrous Sulfate 325 MG Tab PO SCH ×2 (07:23→22:02)
[2021-04-09] MEDS: Aspirin 81 MG Tab.EC PO SCH (07:23)
[2021-04-09] MEDS: Clopidogrel 75 MG Tab PO SCH (07:23)
[2021-04-09] MEDS: Pantoprazole 20 MG Tab, Delayed Release PO SCH (07:23)
[2021-04-09] MEDS: Multivitamins with Iron/Calcium/Folic Acid/Minerals Tab PO SCH (07:23)
[2021-04-09] MEDS: Carvedilol 6.25 MG Tab PO SCH ×2 (07:23→17:21)
[2021-04-09] MEDS: Ascorbic Acid 500 MG Tab PO SCH ×2 (07:23→22:01)
[2021-04-09] MEDS: hydrALAZINE 25 MG Tab PO SCH ×3 (07:24→22:09)
[2021-04-09] MEDS: Acetaminophen/HYDROcodone 325-5 MG Tab PO PRN (12:42)
[2021-04-09] MEDS: CINNAMON BARK 1000 MG PO SCH (22:03)
[2021-04-09] MEDS: Rosuvastatin 20 MG Tab PO SCH (22:04)
[2021-04-10] MEDS: Acetaminophen/HYDROcodone 325-5 MG Tab PO PRN ×3 (00:31→13:04)
[2021-04-10] MEDS: Ondansetron 4 MG Tab.DIS PO PRN ×2 (08:00→13:04)
[2021-04-10] MEDS: Clopidogrel 75 MG Tab PO SCH (08:01)
[2021-04-10] MEDS: Aspirin 81 MG Tab.EC PO SCH (08:02)
[2021-04-10] MEDS: Bumetanide 1 MG Tab PO SCH ×2 (08:02→13:05)
[2021-04-10] MEDS: Folic Acid 0.4 MG Tab PO SCH (08:03)
[2021-04-10] MEDS: hydrALAZINE 25 MG Tab PO SCH ×3 (08:03→20:15)
[2021-04-10] MEDS: Carvedilol 6.25 MG Tab PO SCH ×2 (08:03→18:18)
[2021-04-10] MEDS: Ferrous Sulfate 325 MG Tab PO SCH ×2 (08:04→20:16)
[2021-04-10] MEDS: Multivitamins with Iron/Calcium/Folic Acid/Minerals Tab PO SCH (08:04)
[2021-04-10] MEDS: Ascorbic Acid 500 MG Tab PO SCH ×2 (08:04→20:15)
[2021-04-10] MEDS: Acetaminophen 325 MG Tab PO PRN ×4 (08:04→22:17)
[2021-04-10] MEDS: Pantoprazole 20 MG Tab, Delayed Release PO SCH (08:04)
[2021-04-10] MEDS: Miconazole 2% Top Powder 45 GM Container TOP PRN (08:09)
[2021-04-10] MEDS: CINNAMON BARK 1000 MG PO SCH (20:14)
[2021-04-10] MEDS: Rosuvastatin 20 MG Tab PO SCH (20:17)
[2021-04-11] MEDS: Acetaminophen/HYDROcodone 325-5 MG Tab PO PRN ×3 (02:08→23:41)
[2021-04-11] MEDS: Clopidogrel 75 MG Tab PO SCH (07:47)
[2021-04-11] MEDS: Carvedilol 6.25 MG Tab PO SCH ×2 (07:47→17:59)
[2021-04-11] MEDS: Acetaminophen 325 MG Tab PO PRN ×3 (07:50→20:19)
[2021-04-11] MEDS: hydrALAZINE 25 MG Tab PO SCH ×3 (07:50→20:19)
[2021-04-11] MEDS: Ascorbic Acid 500 MG Tab PO SCH ×2 (07:51→20:18)
[2021-04-11] MEDS: Pantoprazole 20 MG Tab, Delayed Release PO SCH (07:51)
[2021-04-11] MEDS: Bumetanide 1 MG Tab PO SCH ×2 (07:52→13:20)
[2021-04-11] MEDS: Aspirin 81 MG Tab.EC PO SCH (07:52)
[2021-04-11] MEDS: Ferrous Sulfate 325 MG Tab PO SCH ×2 (07:52→20:18)
[2021-04-11] MEDS: Folic Acid 0.4 MG Tab PO SCH (07:52)
[2021-04-11] MEDS: Multivitamins with Iron/Calcium/Folic Acid/Minerals Tab PO SCH (07:54)
[2021-04-11] MEDS: Ondansetron 4 MG Tab.DIS PO PRN (07:58)
[2021-04-11] MEDS: CINNAMON BARK 1000 MG PO SCH (20:20)
[2021-04-11] MEDS: Rosuvastatin 20 MG Tab PO SCH (20:21)
[2021-04-11] MEDS: ALPRAZolam 0.25 MG Tab PO PRN (20:24)
[2021-04-12] MEDS: Acetaminophen 325 MG Tab PO PRN ×4 (02:14→19:49)
[2021-04-12] MEDS: Ondansetron 4 MG Tab.DIS PO PRN (08:05)
[2021-04-12] MEDS: Folic Acid 0.4 MG Tab PO SCH ×2 (08:24→08:29)
[2021-04-12] MEDS: Multivitamins with Iron/Calcium/Folic Acid/Minerals Tab PO SCH ×2 (08:24→08:29)
[2021-04-12] MEDS: Ferrous Sulfate 325 MG Tab PO SCH ×3 (08:25→19:46)
[2021-04-12] MEDS: Aspirin 81 MG Tab.EC PO SCH (08:25)
[2021-04-12] MEDS: Clopidogrel 75 MG Tab PO SCH (08:25)
[2021-04-12] MEDS: Ascorbic Acid 500 MG Tab PO SCH ×3 (08:25→19:48)
[2021-04-12] MEDS: Bumetanide 1 MG Tab PO SCH ×2 (08:25→13:30)
[2021-04-12] MEDS: Pantoprazole 20 MG Tab, Delayed Release PO SCH (08:25)
[2021-04-12] MEDS: hydrALAZINE 25 MG Tab PO SCH ×3 (08:26→19:46)
[2021-04-12] MEDS: Carvedilol 6.25 MG Tab PO SCH ×2 (08:26→17:33)
[2021-04-12] MEDS: Acetaminophen/HYDROcodone 325-5 MG Tab PO PRN (14:45)
[2021-04-12] MEDS: CINNAMON BARK 1000 MG PO SCH (19:48)
[2021-04-12] MEDS: Miconazole 2% Top Powder 45 GM Container TOP PRN (19:56)
[2021-04-12] MEDS: Rosuvastatin 20 MG Tab PO SCH (20:36)
[2021-04-13] MEDS: Acetaminophen 325 MG Tab PO PRN ×4 (00:41→20:30)
[2021-04-13] MEDS: Acetaminophen/HYDROcodone 325-5 MG Tab PO PRN ×2 (04:13→22:21)
[2021-04-13] MEDS: Ondansetron 4 MG Tab.DIS PO PRN (08:11)
[2021-04-13] MEDS: Bumetanide 1 MG Tab PO SCH ×2 (08:12→14:30)
[2021-04-13] MEDS: Carvedilol 6.25 MG Tab PO SCH ×2 (08:12→17:34)
[2021-04-13] MEDS: hydrALAZINE 25 MG Tab PO SCH ×3 (08:12→20:31)
[2021-04-13] MEDS: Clopidogrel 75 MG Tab PO SCH (08:16)
[2021-04-13] MEDS: Pantoprazole 20 MG Tab, Delayed Release PO SCH (08:16)
[2021-04-13] MEDS: Aspirin 81 MG Tab.EC PO SCH (08:16)
[2021-04-13] MEDS: Ferrous Sulfate 325 MG Tab PO SCH ×2 (08:18→20:29)
[2021-04-13] MEDS: Folic Acid 0.4 MG Tab PO SCH (08:19)
[2021-04-13] MEDS: Ascorbic Acid 500 MG Tab PO SCH ×2 (08:19→20:29)
[2021-04-13] MEDS: Multivitamins with Iron/Calcium/Folic Acid/Minerals Tab PO SCH (08:19)
[2021-04-13] MEDS: ALPRAZolam 0.25 MG Tab PO PRN (15:32)
[2021-04-13] MEDS: Rosuvastatin 20 MG Tab PO SCH (20:31)
[2021-04-13] MEDS: CINNAMON BARK 1000 MG PO SCH (20:31)
[2021-04-13] MEDS: Miconazole 2% Top Powder 45 GM Container TOP PRN (20:32)
[2021-04-14] MEDS: Acetaminophen 325 MG Tab PO PRN ×4 (02:25→20:41)
[2021-04-14] MEDS: Acetaminophen/HYDROcodone 325-5 MG Tab PO PRN ×2 (05:36→12:01)
[2021-04-14] MEDS: ALPRAZolam 0.25 MG Tab PO PRN (07:27)
[2021-04-14] MEDS: Clopidogrel 75 MG Tab PO SCH (07:28)
[2021-04-14] MEDS: Aspirin 81 MG Tab.EC PO SCH (07:28)
[2021-04-14] MEDS: Ondansetron 4 MG Tab.DIS PO PRN ×2 (07:28→12:01)
[2021-04-14] MEDS: Folic Acid 0.4 MG Tab PO SCH (07:28)
[2021-04-14] MEDS: Ferrous Sulfate 325 MG Tab PO SCH ×2 (07:29→19:37)
[2021-04-14] MEDS: Pantoprazole 20 MG Tab, Delayed Release PO SCH (07:29)
[2021-04-14] MEDS: Multivitamins with Iron/Calcium/Folic Acid/Minerals Tab PO SCH (07:29)
[2021-04-14] MEDS: hydrALAZINE 25 MG Tab PO SCH ×3 (07:30→19:37)
[2021-04-14] MEDS: Carvedilol 6.25 MG Tab PO SCH ×2 (07:30→17:41)
[2021-04-14] MEDS: Ascorbic Acid 500 MG Tab PO SCH ×2 (07:30→19:36)
[2021-04-14] MEDS: Bumetanide 1 MG Tab PO SCH ×2 (07:33→13:27)
[2021-04-14] MEDS: Miconazole 2% Top Powder 45 GM Container TOP PRN (07:40)
[2021-04-14] MEDS: Rosuvastatin 20 MG Tab PO SCH (19:38)
[2021-04-14] MEDS: CINNAMON BARK 1000 MG PO SCH (19:39)
[2021-04-15] MEDS: Acetaminophen/HYDROcodone 325-5 MG Tab PO PRN ×2 (01:34→11:38)
[2021-04-15] MEDS: Acetaminophen 325 MG Tab PO PRN ×2 (06:40→13:37)
[2021-04-15] MEDS: Ondansetron 4 MG Tab.DIS PO PRN (07:34)
[2021-04-15] MEDS: Nystatin Crm 30 GM Tube TOP SCH ×2 (07:35→19:36)
[2021-04-15] MEDS: Miconazole 2% Top Powder 45 GM Container TOP PRN (07:36)
[2021-04-15] MEDS: Aspirin 81 MG Tab.EC PO SCH (07:42)
[2021-04-15] MEDS: hydrALAZINE 25 MG Tab PO SCH ×3 (07:42→19:34)
[2021-04-15] MEDS: Carvedilol 6.25 MG Tab PO SCH ×2 (07:43→17:28)
[2021-04-15] MEDS: Clopidogrel 75 MG Tab PO SCH (07:43)
[2021-04-15] MEDS: Pantoprazole 20 MG Tab, Delayed Release PO SCH (07:43)
[2021-04-15] MEDS: Multivitamins with Iron/Calcium/Folic Acid/Minerals Tab PO SCH (07:43)
[2021-04-15] MEDS: Folic Acid 0.4 MG Tab PO SCH (07:43)
[2021-04-15] MEDS: Ascorbic Acid 500 MG Tab PO SCH ×2 (07:43→19:33)
[2021-04-15] MEDS: Bumetanide 1 MG Tab PO SCH ×2 (07:43→13:35)
[2021-04-15] MEDS: Ferrous Sulfate 325 MG Tab PO SCH ×2 (07:43→19:33)
[2021-04-15] MEDS: ALPRAZolam 0.25 MG Tab PO PRN (10:44)
[2021-04-15] MEDS: Rosuvastatin 20 MG Tab PO SCH (19:35)
[2021-04-15] MEDS: CINNAMON BARK 1000 MG PO SCH (19:37)
[2021-04-16] MEDS: Acetaminophen/HYDROcodone 325-5 MG Tab PO PRN ×3 (01:33→23:45)
[2021-04-16] MEDS: Acetaminophen 325 MG Tab PO PRN ×3 (06:27→15:42)
[2021-04-16] MEDS: Ondansetron 4 MG Tab.DIS PO PRN (07:36)
[2021-04-16] MEDS: Folic Acid 0.4 MG Tab PO SCH (07:40)
[2021-04-16] MEDS: Multivitamins with Iron/Calcium/Folic Acid/Minerals Tab PO SCH (07:40)
[2021-04-16] MEDS: Aspirin 81 MG Tab.EC PO SCH (07:40)
[2021-04-16] MEDS: Carvedilol 6.25 MG Tab PO SCH ×2 (07:41→17:21)
[2021-04-16] MEDS: Bumetanide 1 MG Tab PO SCH ×2 (07:41→14:34)
[2021-04-16] MEDS: Ferrous Sulfate 325 MG Tab PO SCH ×2 (07:41→20:17)
[2021-04-16] MEDS: Ascorbic Acid 500 MG Tab PO SCH ×2 (07:42→20:17)
[2021-04-16] MEDS: Pantoprazole 20 MG Tab, Delayed Release PO SCH (07:42)
[2021-04-16] MEDS: Clopidogrel 75 MG Tab PO SCH (07:42)
[2021-04-16] MEDS: Miconazole 2% Top Powder 45 GM Container TOP PRN (07:43)
[2021-04-16] MEDS: hydrALAZINE 25 MG Tab PO SCH ×3 (07:43→20:16)
[2021-04-16] MEDS: Nystatin Crm 30 GM Tube TOP SCH ×2 (07:43→22:22)
[2021-04-16] MEDS: ALPRAZolam 0.25 MG Tab PO PRN ×2 (09:31→22:21)
[2021-04-16] MEDS: Rosuvastatin 20 MG Tab PO SCH (20:18)
[2021-04-16] MEDS: CINNAMON BARK 1000 MG PO SCH (20:21)
[2021-04-17] MEDS: Acetaminophen 325 MG Tab PO PRN ×4 (02:21→22:05)
[2021-04-17] MEDS: Ondansetron 4 MG Tab.DIS PO PRN (07:56)
[2021-04-17] MEDS: Multivitamins with Iron/Calcium/Folic Acid/Minerals Tab PO SCH (07:57)
[2021-04-17] MEDS: Ascorbic Acid 500 MG Tab PO SCH ×2 (08:01→20:10)
[2021-04-17] MEDS: Folic Acid 0.4 MG Tab PO SCH (08:02)
[2021-04-17] MEDS: Ferrous Sulfate 325 MG Tab PO SCH ×2 (08:03→20:10)
[2021-04-17] MEDS: hydrALAZINE 25 MG Tab PO SCH ×3 (08:03→20:09)
[2021-04-17] MEDS: Aspirin 81 MG Tab.EC PO SCH (08:04)
[2021-04-17] MEDS: Carvedilol 6.25 MG Tab PO SCH ×2 (08:05→18:09)
[2021-04-17] MEDS: Pantoprazole 20 MG Tab, Delayed Release PO SCH (08:05)
[2021-04-17] MEDS: Clopidogrel 75 MG Tab PO SCH (08:05)
[2021-04-17] MEDS: Bumetanide 1 MG Tab PO SCH ×2 (08:08→14:48)
[2021-04-17] MEDS: Miconazole 2% Top Powder 45 GM Container TOP PRN ×2 (08:09→20:11)
[2021-04-17] MEDS: Nystatin Crm 30 GM Tube TOP SCH ×2 (08:09→20:11)
[2021-04-17] MEDS: Acetaminophen/HYDROcodone 325-5 MG Tab PO PRN ×2 (08:37→14:03)
--- NOTE | 2021-04-17 14:14 | PCM.PN ---
- General Info Date of Service: 04/17/21 Subjective Update: Patient doing well with therapy. Nursing noted palpable lump near incision. Patient reports adequate pain control. Functional Status: Reports: Pain Controlled - Review of Systems General: Denies: Fever HEENT: Reports: No Symptoms Pulmonary: Denies: Shortness of Breath Cardiovascular: Denies: Chest Pain Gastrointestinal: Denies: Abdominal Pain - Patient Data Vitals - Most Recent: Last Vital Signs Temp 36.2 C 04/17/21 06:20 Pulse 75 04/17/21 08:05 Resp 18 04/17/21 06:20 BP 127/67 04/17/21 14:04 Pulse Ox 95 04/17/21 06:20 Weight - Most Recent: 95.254 kg I&O - Last 24 Hours: Intake & Output 04/16/21 04/17/21 04/17/21 22:59 06:59 14:59 Intake Total 240 220 Balance 240 220 Med Orders - Current: Current Medications Acetaminophen (Acetaminophen 325 Mg Tab) 650 mg PO Q4H PRN PRN Reason: Pain Last Admin: 04/17/21 12:00 Dose: 650 mg Documented by: Hydrocodone Bitart/Acetaminophen (Acetaminophen/Hydrocodone 325-5 Mg Tab) 0.5 tab PO Q6H PRN PRN Reason: Pain Last Admin: 04/17/21 14:03 Dose: 0.5 tab Documented by: Alprazolam (Alprazolam 0.25 Mg Tab) 0.125 mg PO BID PRN PRN Reason: Anxiety Last Admin: 04/16/21 22:21 Dose: 0.125 mg Documented by: Ascorbic Acid (Ascorbic Acid 500 Mg Tab) 250 mg PO BID [facility] Last Admin: 04/17/21 08:01 Dose: 250 mg Documented by: Aspirin (Aspirin 81 Mg Tab.Ec) 81 mg PO DAILY [facility] Last Admin: 04/17/21 08:04 Dose: 81 mg Documented by: Bumetanide (Bumetanide 1 Mg Tab) 0.5 mg PO DAILY@1400 [facility] Last Admin: 04/16/21 14:34 Dose: 0.5 mg Documented by: Bumetanide (Bumetanide 1 Mg Tab) 1 mg PO DAILY [facility] Last Admin: 04/17/21 08:08 Dose: 1 mg Documented by: Carvedilol (Carvedilol 6.25 Mg Tab) 12.5 mg PO BIDMEALS [facility] Last Admin: 04/17/21 08:05 Dose: 12.5 mg Documented by: Clopidogrel Bisulfate (Clopidogrel 75 Mg Tab) 75 mg PO DAILY [facility] Last Admin: 04/17/21 08:05 Dose: 75 mg Documented by: Doxazosin Mesylate (Doxazosin 1 Mg Tab) 1.5 mg PO DAILY [facility] Last Admin: 04/17/21 08:06 Dose: 1.5 mg Documented by: Ferrous Sulfate (Ferrous Sulfate 325 Mg Tab) 325 mg PO BID [facility] Last Admin: 04/17/21 08:03 Dose: 325 mg Documented by: Folic Acid (Folic Acid 0.4 Mg Tab) 0.8 mg PO DAILY [facility] Last Admin: 04/17/21 08:02 Dose: 0.8 mg Documented by: Hydralazine HCl (Hydralazine 25 Mg Tab) 50 mg PO TID [facility] Last Admin: 04/17/21 14:04 Dose: 50 mg Documented by: Miconazole (Miconazole 2% Top Powder 45 Gm Container) 0 gm TOP BID PRN PRN Reason: Rash Last Admin: 04/17/21 08:09 Dose: 1 applic Documented by: Multivitamins/Minerals (Multivitamins With Iron/Calcium/Folic Acid/Minerals Tab) 1 tab PO DAILY [facility] Last Admin: 04/17/21 07:57 Dose: 1 tab Documented by: Nitroglycerin (Nitroglycerin 0.4 Mg Tab.Sl) 0.4 mg SL ASDIRECTED PRN PRN Reason: Chest Pain Last Admin: 04/09/21 09:58 Dose: 0.4 mg Documented by: Cinnamon Bark [ Cinnamon] 1,000 Mg ( Own Supply) 0 mg PO BEDTIME [facility] Last Admin: 04/16/21 20:21 Dose: Not Given Documented by: Nystatin (Nystatin Crm 30 Gm Tube) 0 gm TOP BID [facility] Last Admin: 04/17/21 08:09 Dose: 1 applic Documented by: Ondansetron HCl (Ondansetron 4 Mg Tab.Dis) 4 mg PO Q6H PRN PRN Reason: Nausea/Vomiting Last Admin: 04/17/21 07:56 Dose: 4 mg Documented by: Pantoprazole Sodium (Pantoprazole 20 Mg Tab, Delayed Release) 20 mg PO DAILY [facility] Last Admin: 04/17/21 08:05 Dose: 20 mg Documented by: Rosuvastatin Calcium (Rosuvastatin 20 Mg Tab) 10 mg PO BEDTIME [facility] Last Admin: 04/16/21 20:18 Dose: 10 mg Documented by: Senna/Docusate Sodium (Docusate Sodium/Sennosides 50-8.6 Mg Tab) 1 tab PO BID [facility] Last Admin: 04/17/21 08:02 Dose: 1 tab Documented by: Discontinued Medications Cinnamon Bark [ Cinnamon] 1,000 Mg ( Own Supply) 0 mg PO DAILY [facility] Last Admin: 03/25/21 15:33 Dose: Not Given Documented by: Rosuvastatin [ Crestor] 10 Mg Tablet (Own Supply) 0 mg PO BEDTIME [facility] Last Admin: 04/01/21 20:26 Dose: Not Given Documented by: Pantoprazole 20mg Cr (Tab) 1 each PO DAILY [facility] Last Admin: 03/31/21 07:39 Dose: 1 each Documented by: Pantoprazole Sodium (Pantoprazole 40 Mg Tab.Cr) 20 mg PO DAILY [facility] Last Admin: 03/27/21 10:48 Dose: 20 mg Documented by: Pantoprazole Sodium (Pantoprazole 20 Mg Tab, Delayed Release) 20 mg PO DAILY@0700 [facility] Last Admin: 04/08/21 06:13 Dose: 20 mg Documented by: Tramadol HCl (Tramadol 50 Mg Tab) 50 mg PO Q6H PRN PRN Reason: Pain Last Admin: 03/27/21 08:19 Dose: 50 mg Documented by: - Exam General: Alert, Oriented HEENT: Pupils Equal Neck: Supple Lungs: Clear to Auscultation Cardiovascular: Regular Rate Extremities: Other (Incision has healed well. Palpable healing ridge posterior to incision) Sepsis Event Note - Evaluation Sepsis Screening Result: No Definite Risk - Focused Exam Vital Signs: Vital Signs Temp Pulse Pulse Resp BP BP Pulse Ox 04/17/21 14:04 127/67 04/17/21 08:06 136/65 04/17/21 08:05 75 136/65 04/17/21 08:03 136/65 04/17/21 06:20 36.2 C 75 18 136/65 95 - Problem List & Annotations (1) Status post hip replacement SNOMED Code(s): 529175475, 196452169, 997908819, 731199282 Code(s): Z96.649 - PRESENCE OF UNSPECIFIED ARTIFICIAL HIP JOINT Status: Acute Current Visit: Yes (2) CAD (coronary artery disease) SNOMED Code(s): 59540140 Code(s): I25.10 - ATHSCL HEART DISEASE OF [place] CORONARY ARTERY W/O ANG PCTRS Status: Chronic Current Visit: Yes Qualifiers: Coronary Disease-Associated Artery/Lesion type: [place] artery [place] vs. transplanted heart: [place] heart Associated angina: without angina Qualified Code(s): I25.10 - Atherosclerotic heart disease of [place] coronary artery without angina pectoris (3) CRF (chronic renal failure) SNOMED Code(s): 44252705 Code(s): N18.9 - CHRONIC KIDNEY DISEASE, UNSPECIFIED Status: Chronic Current Visit: No Qualifiers: Chronic kidney disease stage: stage 4 (severe) Qualified Code(s): N18.4 - Chronic kidney disease, stage 4 (severe) (4) Congestive heart failure SNOMED Code(s): 75763848 Code(s): I50.9 - HEART FAILURE, UNSPECIFIED Status: Chronic Priority: Low Current Visit: No Qualifiers: Qualified Code(s): I50.9 - Heart failure, unspecified - Problem List Review Problem List Initiated/Reviewed/Updated: Yes - Assessment Assessment:: 1. Seroma 2. S/P right ALEXANDREA - Plan Plan:: Reassurance provided. may use K pad. Continue with therapy
[2021-04-17] MEDS ORDERED: Bisacodyl 5 MG Tab PO PRN (14:55)
[2021-04-17] MEDS: CINNAMON BARK 1000 MG PO SCH (20:10)
[2021-04-17] MEDS: Rosuvastatin 20 MG Tab PO SCH (20:10)
[2021-04-18] MEDS: Acetaminophen/HYDROcodone 325-5 MG Tab PO PRN ×3 (00:53→21:54)
[2021-04-18] MEDS: Acetaminophen 325 MG Tab PO PRN ×3 (03:46→19:49)
[2021-04-18] MEDS: Ondansetron 4 MG Tab.DIS PO PRN (08:20)
[2021-04-18] MEDS: Clopidogrel 75 MG Tab PO SCH (09:59)
[2021-04-18] MEDS: hydrALAZINE 25 MG Tab PO SCH ×3 (09:59→19:51)
[2021-04-18] MEDS: Pantoprazole 20 MG Tab, Delayed Release PO SCH (09:59)
[2021-04-18] MEDS: Carvedilol 6.25 MG Tab PO SCH ×2 (10:00→18:02)
[2021-04-18] MEDS: Folic Acid 0.4 MG Tab PO SCH (10:02)
[2021-04-18] MEDS: Ferrous Sulfate 325 MG Tab PO SCH ×2 (10:03→19:52)
[2021-04-18] MEDS: Multivitamins with Iron/Calcium/Folic Acid/Minerals Tab PO SCH (10:03)
[2021-04-18] MEDS: Aspirin 81 MG Tab.EC PO SCH (10:03)
[2021-04-18] MEDS: Ascorbic Acid 500 MG Tab PO SCH ×2 (10:04→19:52)
[2021-04-18] MEDS: Bumetanide 1 MG Tab PO SCH ×2 (10:06→13:58)
[2021-04-18] MEDS: Nystatin Crm 30 GM Tube TOP SCH ×2 (10:07→19:53)
[2021-04-18] MEDS: Rosuvastatin 20 MG Tab PO SCH (19:52)
[2021-04-18] MEDS: CINNAMON BARK 1000 MG PO SCH (19:52)
[2021-04-18] MEDS: Miconazole 2% Top Powder 45 GM Container TOP PRN (19:53)
[2021-04-19] MEDS: Acetaminophen 325 MG Tab PO PRN ×4 (02:50→21:31)
[2021-04-19] MEDS: Ondansetron 4 MG Tab.DIS PO PRN ×2 (07:32→19:30)
[2021-04-19] MEDS: hydrALAZINE 25 MG Tab PO SCH ×3 (07:35→19:23)
[2021-04-19] MEDS: Bumetanide 1 MG Tab PO SCH ×2 (07:35→13:31)
[2021-04-19] MEDS: Ascorbic Acid 500 MG Tab PO SCH ×2 (07:36→19:22)
[2021-04-19] MEDS: Multivitamins with Iron/Calcium/Folic Acid/Minerals Tab PO SCH (07:36)
[2021-04-19] MEDS: Carvedilol 6.25 MG Tab PO SCH ×2 (07:36→17:34)
[2021-04-19] MEDS: Folic Acid 0.4 MG Tab PO SCH (07:37)
[2021-04-19] MEDS: Ferrous Sulfate 325 MG Tab PO SCH ×2 (07:38→19:24)
[2021-04-19] MEDS: Pantoprazole 20 MG Tab, Delayed Release PO SCH (07:38)
[2021-04-19] MEDS: Aspirin 81 MG Tab.EC PO SCH (07:38)
[2021-04-19] MEDS: Clopidogrel 75 MG Tab PO SCH (07:38)
[2021-04-19] MEDS: Miconazole 2% Top Powder 45 GM Container TOP PRN (07:39)
[2021-04-19] MEDS: Nystatin Crm 30 GM Tube TOP SCH ×2 (07:39→19:25)
[2021-04-19] MEDS: Acetaminophen/HYDROcodone 325-5 MG Tab PO PRN ×3 (07:45→23:26)
[2021-04-19] MEDS: CINNAMON BARK 1000 MG PO SCH (19:25)
[2021-04-19] MEDS: Rosuvastatin 20 MG Tab PO SCH (19:25)
[2021-04-20] MEDS: Acetaminophen 325 MG Tab PO PRN ×3 (03:10→20:02)
[2021-04-20] MEDS: Acetaminophen/HYDROcodone 325-5 MG Tab PO PRN ×2 (05:50→13:49)
[2021-04-20] MEDS: Ondansetron 4 MG Tab.DIS PO PRN ×2 (07:26→13:48)
[2021-04-20] MEDS: Nystatin Crm 30 GM Tube TOP SCH ×2 (07:27→19:59)
[2021-04-20] MEDS: Miconazole 2% Top Powder 45 GM Container TOP PRN ×2 (07:27→20:00)
[2021-04-20] MEDS: Ferrous Sulfate 325 MG Tab PO SCH ×2 (07:28→19:57)
[2021-04-20] MEDS: Multivitamins with Iron/Calcium/Folic Acid/Minerals Tab PO SCH (07:28)
[2021-04-20] MEDS: Folic Acid 0.4 MG Tab PO SCH (07:28)
[2021-04-20] MEDS: Bumetanide 1 MG Tab PO SCH ×2 (07:28→13:48)
[2021-04-20] MEDS: Aspirin 81 MG Tab.EC PO SCH (07:28)
[2021-04-20] MEDS: Pantoprazole 20 MG Tab, Delayed Release PO SCH (07:28)
[2021-04-20] MEDS: Clopidogrel 75 MG Tab PO SCH (07:28)
[2021-04-20] MEDS: hydrALAZINE 25 MG Tab PO SCH ×3 (07:29→19:58)
[2021-04-20] MEDS: Ascorbic Acid 500 MG Tab PO SCH ×2 (07:30→19:58)
[2021-04-20] MEDS: Carvedilol 6.25 MG Tab PO SCH ×2 (07:30→17:35)
[2021-04-20] MEDS: CINNAMON BARK 1000 MG PO SCH (19:59)
[2021-04-20] MEDS: Rosuvastatin 20 MG Tab PO SCH (19:59)
[2021-04-21] MEDS: Acetaminophen/HYDROcodone 325-5 MG Tab PO PRN ×2 (01:04→09:26)
[2021-04-21] MEDS: Acetaminophen 325 MG Tab PO PRN ×4 (02:37→19:51)
[2021-04-21] MEDS: Ondansetron 4 MG Tab.DIS PO PRN (09:10)
[2021-04-21] MEDS: Bumetanide 1 MG Tab PO SCH ×2 (09:20→13:18)
[2021-04-21] MEDS: Aspirin 81 MG Tab.EC PO SCH (09:20)
[2021-04-21] MEDS: Carvedilol 6.25 MG Tab PO SCH ×2 (09:21→18:29)
[2021-04-21] MEDS: Pantoprazole 20 MG Tab, Delayed Release PO SCH (09:22)
[2021-04-21] MEDS: Clopidogrel 75 MG Tab PO SCH (09:22)
[2021-04-21] MEDS: hydrALAZINE 25 MG Tab PO SCH ×3 (09:24→19:49)
[2021-04-21] MEDS: Ferrous Sulfate 325 MG Tab PO SCH ×2 (09:25→19:50)
[2021-04-21] MEDS: Ascorbic Acid 500 MG Tab PO SCH ×2 (09:25→19:49)
[2021-04-21] MEDS: Folic Acid 0.4 MG Tab PO SCH (09:25)
[2021-04-21] MEDS: Nystatin Crm 30 GM Tube TOP SCH ×2 (09:25→19:53)
[2021-04-21] MEDS: Multivitamins with Iron/Calcium/Folic Acid/Minerals Tab PO SCH (09:25)
[2021-04-21] MEDS: CINNAMON BARK 1000 MG PO SCH (19:50)
[2021-04-21] MEDS: Rosuvastatin 20 MG Tab PO SCH (19:50)
[2021-04-21] MEDS: Miconazole 2% Top Powder 45 GM Container TOP PRN (19:53)
[2021-04-21] MEDS: ALPRAZolam 0.25 MG Tab PO PRN (21:11)
[2021-04-22] MEDS: Acetaminophen 325 MG Tab PO PRN ×3 (00:39→21:23)
[2021-04-22] MEDS: Acetaminophen/HYDROcodone 325-5 MG Tab PO PRN ×3 (05:40→23:52)
[2021-04-22] MEDS: Ondansetron 4 MG Tab.DIS PO PRN ×2 (07:20→21:13)
[2021-04-22] MEDS: Bumetanide 1 MG Tab PO SCH ×2 (07:21→14:56)
[2021-04-22] MEDS: Ascorbic Acid 500 MG Tab PO SCH ×2 (07:21→21:16)
[2021-04-22] MEDS: Ferrous Sulfate 325 MG Tab PO SCH ×2 (07:21→21:14)
[2021-04-22] MEDS: Multivitamins with Iron/Calcium/Folic Acid/Minerals Tab PO SCH (07:21)
[2021-04-22] MEDS: Aspirin 81 MG Tab.EC PO SCH (07:21)
[2021-04-22] MEDS: Folic Acid 0.4 MG Tab PO SCH (07:21)
[2021-04-22] MEDS: Nystatin Crm 30 GM Tube TOP SCH ×2 (07:22→21:19)
[2021-04-22] MEDS: Clopidogrel 75 MG Tab PO SCH (07:22)
[2021-04-22] MEDS: Pantoprazole 20 MG Tab, Delayed Release PO SCH (07:22)
[2021-04-22] MEDS: Miconazole 2% Top Powder 45 GM Container TOP PRN (07:23)
[2021-04-22] MEDS: hydrALAZINE 25 MG Tab PO SCH ×3 (07:23→21:14)
[2021-04-22] MEDS: Carvedilol 6.25 MG Tab PO SCH ×2 (07:35→17:36)
[2021-04-22] MEDS: CINNAMON BARK 1000 MG PO SCH (21:12)
[2021-04-22] MEDS: Rosuvastatin 20 MG Tab PO SCH (21:16)
[2021-04-23] MEDS: Acetaminophen 325 MG Tab PO PRN (04:33)
[2021-04-23 07:26] VITALS: BP 145/54; PULSE 68
[2021-04-23] MEDS: Ondansetron 4 MG Tab.DIS PO PRN (08:21)
[2021-04-23] MEDS: Clopidogrel 75 MG Tab PO SCH (08:22)
[2021-04-23] MEDS: hydrALAZINE 25 MG Tab PO SCH (08:23)
[2021-04-23] MEDS: Carvedilol 6.25 MG Tab PO SCH (08:23)
[2021-04-23] MEDS: Acetaminophen/HYDROcodone 325-5 MG Tab PO PRN (08:24)
[2021-04-23] MEDS: Aspirin 81 MG Tab.EC PO SCH ×2 (08:25→09:56)
[2021-04-23] MEDS: Nystatin Crm 30 GM Tube TOP SCH (08:25)
[2021-04-23] MEDS: Pantoprazole 20 MG Tab, Delayed Release PO SCH (08:25)
[2021-04-23] MEDS: Folic Acid 0.4 MG Tab PO SCH (08:26)
[2021-04-23] MEDS: Ferrous Sulfate 325 MG Tab PO SCH (08:26)
[2021-04-23] MEDS: Multivitamins with Iron/Calcium/Folic Acid/Minerals Tab PO SCH (08:26)
[2021-04-23] MEDS: Ascorbic Acid 500 MG Tab PO SCH (08:26)
[2021-04-23] MEDS: Bumetanide 1 MG Tab PO SCH (08:35)
[2021-04-23] MEDS ORDERED: Acetaminophen 325 MG Tab PO PRN (09:03)
[2021-04-23] MEDS ORDERED: ALPRAZolam 0.25 MG Tab PO PRN (09:03)
[2021-04-23] MEDS ORDERED: Aspirin 81 MG Tab.EC PO SCH (09:45)
== END 2021-04-23 12:20 | disposition home or self-care (01) | DRG 560 ==
LOC: VM.MS 15:01 → UNDODISIN 04-22 13:25
PROVIDERS: ADMIT Family Medicine; ATTEND Family Medicine
DX: Z47.1 Aftercare following joint replacement surgery (principal); N18.4 Chronic kidney disease, stage 4 (severe); I13.0 Hypertensive heart and chronic kidney disease with heart failure and stage 1 through stage 4 chronic kidney disease, or unspecified chronic kidney disease; I50.32 Chronic diastolic (congestive) heart failure; I24.8 Other forms of acute ischemic heart disease; M96.842 Postprocedural seroma of a musculoskeletal structure following a musculoskeletal system procedure; Z20.822 Contact with and (suspected) exposure to COVID-19; Z96.641 Presence of right artificial hip joint; H91.90 Unspecified hearing loss, unspecified ear; H54.7 Unspecified visual loss; I25.10 Atherosclerotic heart disease of native coronary artery without angina pectoris; M10.9 Gout, unspecified; F41.9 Anxiety disorder, unspecified; Z79.899 Other long term (current) drug therapy; Z79.82 Long term (current) use of aspirin; Z88.8 Allergy status to other drugs, medicaments and biological substances; E66.9 Obesity, unspecified; Z68.36 Body mass index [BMI] 36.0-36.9, adult
CPT/HCPCS: 97110-GP; 97116-GP; 97162-GP; 97165-GO; 97530-GP; 97535-GO; A9270-GY; U0002

== ENCOUNTER 2021-10-07 11:13 | Emergency (ER) | payer BC ==
[2021-10-07 12:10] LABS: CHLORIDE,CL 107 mmol/L (98-107); SODIUM,NA 143 mmol/L (136-145)
[2021-10-07 12:11] LABS: ANION GAP 12.7 mmol/L (5-15)
[2021-10-07 17:42] VITALS: BP 138/60; PULSE 74
== END 2021-10-07 13:25 | disposition home or self-care (01) ==
LOC: VM.ED 11:13
DX: N93.9 Abnormal uterine and vaginal bleeding, unspecified (principal); I25.10 Atherosclerotic heart disease of native coronary artery without angina pectoris; I13.0 Hypertensive heart and chronic kidney disease with heart failure and stage 1 through stage 4 chronic kidney disease, or unspecified chronic kidney disease; N18.9 Chronic kidney disease, unspecified; I50.9 Heart failure, unspecified; M10.9 Gout, unspecified; E66.9 Obesity, unspecified; Z68.35 Body mass index [BMI] 35.0-35.9, adult; Z88.8 Allergy status to other drugs, medicaments and biological substances; Z88.5 Allergy status to narcotic agent; Z79.82 Long term (current) use of aspirin; Z79.899 Other long term (current) drug therapy
CPT/HCPCS: 36415; 80053; 81001; 82274; 85025; 86140; 99283; 99284

== ENCOUNTER 2021-11-28 08:37 | Inpatient (IN) | payer MEDICARE, BC ==
[2021-11-28] MEDS: Acetaminophen/HYDROcodone 325-5 MG Tab PO PRN ×2 (12:28→17:13)
[2021-11-28] MEDS ORDERED: Nystatin Crm 30 GM Tube TOP PRN (14:32)
[2021-11-28] MEDS ORDERED: Miconazole 2% Top Powder 45 GM Container TOP PRN (14:32)
[2021-11-28] MEDS ORDERED: Nitroglycerin 0.4 MG Tab.SL SL PRN (14:33)
[2021-11-28] MEDS: hydrALAZINE 25 MG Tab PO SCH ×2 (15:22→21:00)
[2021-11-28] MEDS: Carvedilol 12.5 MG Tab PO SCH (17:13)
[2021-11-28] MEDS: Bumetanide 1 MG Tab PO SCH (17:14)
[2021-11-28] MEDS: Folic Acid 0.4 MG Tab PO SCH (20:56)
[2021-11-28] MEDS: CINNAMON 1000 MG PO SCH (20:56)
[2021-11-28] MEDS: Rosuvastatin 20 MG Tab PO SCH (20:56)
[2021-11-28] MEDS ORDERED: CINNAMON 1000 MG PO SCH (21:00)
[2021-11-29] MEDS: ALPRAZolam 0.25 MG Tab PO PRN ×2 (00:29→20:41)
[2021-11-29] MEDS: Acetaminophen/HYDROcodone 325-5 MG Tab PO PRN ×2 (03:33→20:46)
[2021-11-29] MEDS: Clopidogrel 75 MG Tab PO SCH (10:49)
[2021-11-29] MEDS: hydrALAZINE 25 MG Tab PO SCH ×3 (10:50→20:41)
[2021-11-29] MEDS: Bumetanide 1 MG Tab PO SCH ×2 (10:50→17:23)
[2021-11-29] MEDS: Carvedilol 12.5 MG Tab PO SCH ×2 (10:53→17:23)
[2021-11-29] MEDS: Aspirin 81 MG Tab.EC PO SCH (10:53)
[2021-11-29] MEDS: Ascorbic Acid 500 MG Tab PO SCH (10:54)
[2021-11-29] MEDS: [UNRECOGNIZED DRUG - OTHER] PO SCH (12:49)
[2021-11-29] MEDS: Multivitamins with Iron/Calcium/Folic Acid/Minerals Tab PO SCH (13:33)
[2021-11-29] MEDS: Rosuvastatin 20 MG Tab PO SCH (20:43)
[2021-11-29] MEDS: Folic Acid 0.4 MG Tab PO SCH (20:43)
[2021-11-29] MEDS: CINNAMON 1000 MG PO SCH (20:50)
[2021-11-30] MEDS: Acetaminophen/HYDROcodone 325-5 MG Tab PO PRN ×2 (00:43→20:13)
[2021-11-30] MEDS: Bumetanide 1 MG Tab PO SCH ×2 (08:30→17:01)
[2021-11-30] MEDS: Aspirin 81 MG Tab.EC PO SCH (08:33)
[2021-11-30] MEDS: Ascorbic Acid 500 MG Tab PO SCH (08:33)
[2021-11-30] MEDS: Carvedilol 12.5 MG Tab PO SCH ×2 (08:35→18:47)
[2021-11-30] MEDS: hydrALAZINE 25 MG Tab PO SCH ×3 (08:39→20:17)
[2021-11-30] MEDS: Clopidogrel 75 MG Tab PO SCH (08:39)
[2021-11-30] MEDS: [UNRECOGNIZED DRUG - OTHER] PO SCH (16:03)
[2021-11-30] MEDS: Multivitamins with Iron/Calcium/Folic Acid/Minerals Tab PO SCH (16:21)
[2021-11-30] MEDS: Ondansetron 4 MG Tab.DIS PO PRN (20:12)
[2021-11-30] MEDS: Rosuvastatin 20 MG Tab PO SCH (20:12)
[2021-11-30] MEDS: Folic Acid 0.4 MG Tab PO SCH (20:12)
[2021-11-30] MEDS: ALPRAZolam 0.25 MG Tab PO PRN (20:13)
[2021-11-30] MEDS: CINNAMON 1000 MG PO SCH (20:20)
[2021-12-01] MEDS: Acetaminophen/HYDROcodone 325-5 MG Tab PO PRN ×3 (03:19→20:09)
[2021-12-01 07:27] LABS: ANION GAP 12.3 mmol/L (5-15)
[2021-12-01] MEDS: Aspirin 81 MG Tab.EC PO SCH (08:00)
[2021-12-01] MEDS: Bumetanide 1 MG Tab PO SCH ×2 (08:00→18:03)
[2021-12-01] MEDS: Carvedilol 12.5 MG Tab PO SCH ×2 (08:00→18:04)
[2021-12-01] MEDS: Ascorbic Acid 500 MG Tab PO SCH (08:04)
[2021-12-01] MEDS: hydrALAZINE 25 MG Tab PO SCH ×3 (08:04→20:07)
[2021-12-01] MEDS: Clopidogrel 75 MG Tab PO SCH (08:04)
[2021-12-01] MEDS ORDERED: Sodium Chloride 0.9% 500 ML IV SCH (08:45)
[2021-12-01] MEDS: Ondansetron 4 MG Tab.DIS PO PRN ×2 (09:01→18:04)
[2021-12-01] MEDS: [UNRECOGNIZED DRUG - OTHER] PO SCH (09:01)
[2021-12-01] MEDS ORDERED: Ondansetron 4 MG/2 ML SDV IVPUSH ONE (12:18)
[2021-12-01] MEDS: Multivitamins with Iron/Calcium/Folic Acid/Minerals Tab PO SCH (12:41)
[2021-12-01] MEDS: Rosuvastatin 20 MG Tab PO SCH (20:11)
[2021-12-01] MEDS: Folic Acid 0.4 MG Tab PO SCH (20:11)
[2021-12-01] MEDS: CINNAMON 1000 MG PO SCH (20:12)
[2021-12-01] MEDS: ALPRAZolam 0.25 MG Tab PO PRN (20:12)
[2021-12-02] MEDS: Acetaminophen/HYDROcodone 325-5 MG Tab PO PRN ×3 (00:40→20:43)
[2021-12-02] MEDS: Bumetanide 1 MG Tab PO SCH ×2 (09:38→18:29)
[2021-12-02] MEDS: Ascorbic Acid 500 MG Tab PO SCH (09:39)
[2021-12-02] MEDS: hydrALAZINE 25 MG Tab PO SCH ×3 (09:39→20:47)
[2021-12-02] MEDS: Clopidogrel 75 MG Tab PO SCH (09:39)
[2021-12-02] MEDS: Carvedilol 12.5 MG Tab PO SCH ×2 (09:40→18:29)
[2021-12-02] MEDS: Aspirin 81 MG Tab.EC PO SCH (09:40)
[2021-12-02] MEDS: [UNRECOGNIZED DRUG - OTHER] PO SCH (09:42)
[2021-12-02] MEDS: Multivitamins with Iron/Calcium/Folic Acid/Minerals Tab PO SCH (13:29)
[2021-12-02] MEDS: Ondansetron 4 MG Tab.DIS PO PRN (18:10)
[2021-12-02] MEDS: Rosuvastatin 20 MG Tab PO SCH (20:42)
[2021-12-02] MEDS: Folic Acid 0.4 MG Tab PO SCH (20:46)
[2021-12-02] MEDS: CINNAMON 1000 MG PO SCH (20:48)
[2021-12-03] MEDS: ALPRAZolam 0.25 MG Tab PO PRN (00:35)
[2021-12-03] MEDS: Clopidogrel 75 MG Tab PO SCH (09:01)
[2021-12-03] MEDS: hydrALAZINE 25 MG Tab PO SCH ×3 (09:01→20:13)
[2021-12-03] MEDS: Bumetanide 1 MG Tab PO SCH ×2 (09:01→17:37)
[2021-12-03] MEDS: Ascorbic Acid 500 MG Tab PO SCH (09:02)
[2021-12-03] MEDS: Carvedilol 12.5 MG Tab PO SCH ×2 (09:02→17:37)
[2021-12-03] MEDS: Aspirin 81 MG Tab.EC PO SCH (09:02)
[2021-12-03] MEDS: Ondansetron 4 MG Tab.DIS PO PRN (09:03)
[2021-12-03] MEDS: Acetaminophen/HYDROcodone 325-5 MG Tab PO PRN (09:05)
[2021-12-03] MEDS: [UNRECOGNIZED DRUG - OTHER] PO SCH (09:08)
[2021-12-03] MEDS: Multivitamins with Iron/Calcium/Folic Acid/Minerals Tab PO SCH (12:51)
[2021-12-03] MEDS: Rosuvastatin 20 MG Tab PO SCH (20:12)
[2021-12-03] MEDS: Folic Acid 0.4 MG Tab PO SCH (20:13)
[2021-12-03] MEDS: CINNAMON 1000 MG PO SCH (20:13)
[2021-12-04] MEDS: Acetaminophen/HYDROcodone 325-5 MG Tab PO PRN ×2 (00:42→21:43)
[2021-12-04] MEDS: Bumetanide 1 MG Tab PO SCH ×2 (08:29→17:02)
[2021-12-04] MEDS: Ascorbic Acid 500 MG Tab PO SCH (08:29)
[2021-12-04] MEDS: Aspirin 81 MG Tab.EC PO SCH (08:29)
[2021-12-04] MEDS: Clopidogrel 75 MG Tab PO SCH (08:29)
[2021-12-04] MEDS: Carvedilol 12.5 MG Tab PO SCH ×2 (08:30→17:02)
[2021-12-04] MEDS: hydrALAZINE 25 MG Tab PO SCH ×3 (08:30→21:44)
[2021-12-04] MEDS: Ondansetron 4 MG Tab.DIS PO PRN (08:50)
[2021-12-04] MEDS: [UNRECOGNIZED DRUG - OTHER] PO SCH (10:17)
[2021-12-04] MEDS: Multivitamins with Iron/Calcium/Folic Acid/Minerals Tab PO SCH (12:51)
[2021-12-04] MEDS: ALPRAZolam 0.25 MG Tab PO PRN (21:43)
[2021-12-04] MEDS: Folic Acid 0.4 MG Tab PO SCH (21:44)
[2021-12-04] MEDS: Rosuvastatin 20 MG Tab PO SCH (21:44)
[2021-12-04] MEDS: CINNAMON 1000 MG PO SCH (23:26)
[2021-12-04] MEDS: DOXAZOSIN 1 MG PO SCH (23:30)
[2021-12-05] MEDS: Clopidogrel 75 MG Tab PO SCH (08:36)
[2021-12-05] MEDS: Ascorbic Acid 500 MG Tab PO SCH (08:36)
[2021-12-05] MEDS: Bumetanide 1 MG Tab PO SCH ×2 (08:36→17:21)
[2021-12-05] MEDS: Aspirin 81 MG Tab.EC PO SCH (08:36)
[2021-12-05] MEDS: Carvedilol 12.5 MG Tab PO SCH ×2 (08:37→17:21)
[2021-12-05] MEDS: hydrALAZINE 25 MG Tab PO SCH ×3 (08:37→20:51)
[2021-12-05] MEDS: [UNRECOGNIZED DRUG - OTHER] PO SCH (09:30)
[2021-12-05] MEDS: Multivitamins with Iron/Calcium/Folic Acid/Minerals Tab PO SCH (12:11)
[2021-12-05] MEDS: Acetaminophen/HYDROcodone 325-5 MG Tab PO PRN ×2 (14:03→23:16)
[2021-12-05] MEDS: Rosuvastatin 20 MG Tab PO SCH (20:53)
[2021-12-05] MEDS: Folic Acid 0.4 MG Tab PO SCH (20:55)
[2021-12-05] MEDS: DOXAZOSIN 1 MG PO SCH (22:44)
[2021-12-05] MEDS: CINNAMON 1000 MG PO SCH (22:45)
[2021-12-05] MEDS: ALPRAZolam 0.25 MG Tab PO PRN (23:17)
[2021-12-06] MEDS: Bumetanide 1 MG Tab PO SCH ×2 (08:46→17:02)
[2021-12-06] MEDS: Ascorbic Acid 500 MG Tab PO SCH (08:47)
[2021-12-06] MEDS: Carvedilol 12.5 MG Tab PO SCH ×2 (08:47→17:01)
[2021-12-06] MEDS: hydrALAZINE 25 MG Tab PO SCH ×3 (08:47→20:47)
[2021-12-06] MEDS: Clopidogrel 75 MG Tab PO SCH (08:48)
[2021-12-06] MEDS: Aspirin 81 MG Tab.EC PO SCH (08:48)
[2021-12-06] MEDS: [UNRECOGNIZED DRUG - OTHER] PO SCH (08:58)
[2021-12-06] MEDS: Multivitamins with Iron/Calcium/Folic Acid/Minerals Tab PO SCH (12:25)
[2021-12-06] MEDS: Rosuvastatin 20 MG Tab PO SCH (20:52)
[2021-12-06] MEDS: DOXAZOSIN 1 MG PO SCH (20:54)
[2021-12-06] MEDS: Folic Acid 0.4 MG Tab PO SCH (21:03)
[2021-12-06] MEDS: CINNAMON 1000 MG PO SCH (21:04)
[2021-12-06] MEDS: ALPRAZolam 0.25 MG Tab PO PRN (21:54)
[2021-12-06] MEDS: Acetaminophen/HYDROcodone 325-5 MG Tab PO PRN (21:54)
[2021-12-07] MEDS: Acetaminophen/HYDROcodone 325-5 MG Tab PO PRN ×2 (03:06→22:33)
[2021-12-07] MEDS: Ascorbic Acid 500 MG Tab PO SCH (08:25)
[2021-12-07] MEDS: hydrALAZINE 25 MG Tab PO SCH ×3 (08:25→20:30)
[2021-12-07] MEDS: Aspirin 81 MG Tab.EC PO SCH (08:26)
[2021-12-07] MEDS: Carvedilol 12.5 MG Tab PO SCH ×2 (08:26→17:55)
[2021-12-07] MEDS: Clopidogrel 75 MG Tab PO SCH (08:26)
[2021-12-07] MEDS: Bumetanide 1 MG Tab PO SCH ×2 (08:26→17:56)
[2021-12-07] MEDS: [UNRECOGNIZED DRUG - OTHER] PO SCH (08:28)
[2021-12-07] MEDS: Multivitamins with Iron/Calcium/Folic Acid/Minerals Tab PO SCH (12:11)
[2021-12-07] MEDS: Rosuvastatin 20 MG Tab PO SCH (20:31)
[2021-12-07] MEDS: Folic Acid 0.4 MG Tab PO SCH (20:32)
[2021-12-07] MEDS: CINNAMON 1000 MG PO SCH (20:33)
[2021-12-07] MEDS: DOXAZOSIN 1 MG PO SCH (20:34)
[2021-12-07] MEDS: ALPRAZolam 0.25 MG Tab PO PRN (22:32)
[2021-12-08] MEDS: Acetaminophen/HYDROcodone 325-5 MG Tab PO PRN ×2 (02:33→08:25)
[2021-12-08] MEDS: Clopidogrel 75 MG Tab PO SCH (08:26)
[2021-12-08] MEDS: Ascorbic Acid 500 MG Tab PO SCH (08:27)
[2021-12-08] MEDS: Bumetanide 1 MG Tab PO SCH ×2 (08:28→17:41)
[2021-12-08] MEDS: Aspirin 81 MG Tab.EC PO SCH (08:29)
[2021-12-08] MEDS: hydrALAZINE 25 MG Tab PO SCH ×3 (08:35→20:22)
[2021-12-08] MEDS: Carvedilol 12.5 MG Tab PO SCH ×2 (08:35→17:41)
[2021-12-08] MEDS: [UNRECOGNIZED DRUG - OTHER] PO SCH (08:37)
[2021-12-08] MEDS: Multivitamins with Iron/Calcium/Folic Acid/Minerals Tab PO SCH (12:56)
[2021-12-08] MEDS: Rosuvastatin 20 MG Tab PO SCH (20:22)
[2021-12-08] MEDS: Folic Acid 0.4 MG Tab PO SCH (20:23)
[2021-12-08] MEDS: DOXAZOSIN 1 MG PO SCH (20:24)
[2021-12-08] MEDS: CINNAMON 1000 MG PO SCH (20:24)
[2021-12-09] MEDS: ALPRAZolam 0.25 MG Tab PO PRN ×2 (01:58→23:07)
[2021-12-09] MEDS: Acetaminophen/HYDROcodone 325-5 MG Tab PO PRN ×2 (01:58→23:05)
[2021-12-09] MEDS: hydrALAZINE 25 MG Tab PO SCH ×3 (09:09→20:09)
[2021-12-09] MEDS: Clopidogrel 75 MG Tab PO SCH (09:10)
[2021-12-09] MEDS: Aspirin 81 MG Tab.EC PO SCH (09:10)
[2021-12-09] MEDS: Carvedilol 12.5 MG Tab PO SCH ×2 (09:10→17:44)
[2021-12-09] MEDS: Ascorbic Acid 500 MG Tab PO SCH (09:10)
[2021-12-09] MEDS: Bumetanide 1 MG Tab PO SCH ×2 (09:11→17:43)
[2021-12-09] MEDS: [UNRECOGNIZED DRUG - OTHER] PO SCH (09:28)
[2021-12-09] MEDS: Multivitamins with Iron/Calcium/Folic Acid/Minerals Tab PO SCH (12:42)
[2021-12-09] MEDS: Rosuvastatin 20 MG Tab PO SCH (20:08)
[2021-12-09] MEDS: Folic Acid 0.4 MG Tab PO SCH (20:09)
[2021-12-09] MEDS: DOXAZOSIN 1 MG PO SCH (20:10)
[2021-12-09] MEDS: CINNAMON 1000 MG PO SCH (20:10)
[2021-12-10] MEDS: Bumetanide 1 MG Tab PO SCH ×2 (08:30→17:45)
[2021-12-10] MEDS: Ascorbic Acid 500 MG Tab PO SCH (08:30)
[2021-12-10] MEDS: Aspirin 81 MG Tab.EC PO SCH (08:31)
[2021-12-10] MEDS: Clopidogrel 75 MG Tab PO SCH (08:31)
[2021-12-10] MEDS: Carvedilol 12.5 MG Tab PO SCH (08:31)
[2021-12-10] MEDS: hydrALAZINE 25 MG Tab PO SCH ×3 (08:31→20:21)
[2021-12-10] MEDS: [UNRECOGNIZED DRUG - OTHER] PO SCH (08:33)
[2021-12-10] MEDS: Multivitamins with Iron/Calcium/Folic Acid/Minerals Tab PO SCH (13:29)
[2021-12-10] MEDS: ALPRAZolam 0.25 MG Tab PO PRN (13:30)
[2021-12-10] MEDS: DOXAZOSIN 1 MG PO SCH (20:20)
[2021-12-10] MEDS: Rosuvastatin 20 MG Tab PO SCH (20:21)
[2021-12-10] MEDS: Folic Acid 0.4 MG Tab PO SCH (20:21)
[2021-12-10] MEDS: CINNAMON 1000 MG PO SCH (20:22)
[2021-12-10] MEDS: Acetaminophen/HYDROcodone 325-5 MG Tab PO PRN (23:33)
[2021-12-11] MEDS: Acetaminophen/HYDROcodone 325-5 MG Tab PO PRN ×2 (08:54→13:36)
[2021-12-11] MEDS: Ascorbic Acid 500 MG Tab PO SCH (09:01)
[2021-12-11] MEDS: Aspirin 81 MG Tab.EC PO SCH (09:02)
[2021-12-11] MEDS: Carvedilol 12.5 MG Tab PO SCH ×3 (09:03→17:16)
[2021-12-11] MEDS: Bumetanide 1 MG Tab PO SCH ×2 (09:05→17:16)
[2021-12-11] MEDS: hydrALAZINE 25 MG Tab PO SCH ×3 (09:05→20:26)
[2021-12-11] MEDS: Clopidogrel 75 MG Tab PO SCH (09:06)
[2021-12-11] MEDS: [UNRECOGNIZED DRUG - OTHER] PO SCH (10:29)
[2021-12-11] MEDS: Multivitamins with Iron/Calcium/Folic Acid/Minerals Tab PO SCH (13:38)
[2021-12-11] MEDS: DOXAZOSIN 1 MG PO SCH (20:26)
[2021-12-11] MEDS: CINNAMON 1000 MG PO SCH (20:27)
[2021-12-11] MEDS: Folic Acid 0.4 MG Tab PO SCH (20:27)
[2021-12-11] MEDS: Rosuvastatin 20 MG Tab PO SCH (20:27)
[2021-12-12] MEDS: ALPRAZolam 0.25 MG Tab PO PRN ×2 (01:09→10:20)
[2021-12-12] MEDS: hydrALAZINE 25 MG Tab PO SCH ×4 (07:52→20:18)
[2021-12-12] MEDS: Carvedilol 12.5 MG Tab PO SCH ×3 (07:54→17:55)
[2021-12-12] MEDS: Bumetanide 1 MG Tab PO SCH ×3 (07:54→17:52)
[2021-12-12] MEDS: Aspirin 81 MG Tab.EC PO SCH ×3 (07:55→10:16)
[2021-12-12] MEDS: Clopidogrel 75 MG Tab PO SCH ×2 (07:57→10:17)
[2021-12-12] MEDS: Ascorbic Acid 500 MG Tab PO SCH ×2 (07:57→10:17)
[2021-12-12] MEDS: Acetaminophen/HYDROcodone 325-5 MG Tab PO PRN (08:07)
[2021-12-12] MEDS: [UNRECOGNIZED DRUG - OTHER] PO SCH (10:17)
[2021-12-12] MEDS: Multivitamins with Iron/Calcium/Folic Acid/Minerals Tab PO SCH (13:00)
[2021-12-12] MEDS: Folic Acid 0.4 MG Tab PO SCH (20:19)
[2021-12-12] MEDS: Rosuvastatin 20 MG Tab PO SCH (20:19)
[2021-12-12] MEDS: DOXAZOSIN 1 MG PO SCH (20:20)
[2021-12-12] MEDS: CINNAMON 1000 MG PO SCH (20:23)
[2021-12-13] MEDS: ALPRAZolam 0.25 MG Tab PO PRN (00:51)
[2021-12-13] MEDS: Acetaminophen/HYDROcodone 325-5 MG Tab PO PRN (00:52)
[2021-12-13] MEDS: [UNRECOGNIZED DRUG - OTHER] PO SCH (09:00)
[2021-12-13] MEDS: hydrALAZINE 25 MG Tab PO SCH ×3 (09:10→20:07)
[2021-12-13] MEDS: Bumetanide 1 MG Tab PO SCH ×2 (09:11→17:44)
[2021-12-13] MEDS: Carvedilol 12.5 MG Tab PO SCH ×2 (09:11→17:43)
[2021-12-13] MEDS: Ascorbic Acid 500 MG Tab PO SCH (09:12)
[2021-12-13] MEDS: Aspirin 81 MG Tab.EC PO SCH (09:13)
[2021-12-13] MEDS: Clopidogrel 75 MG Tab PO SCH (09:13)
[2021-12-13] MEDS: Multivitamins with Iron/Calcium/Folic Acid/Minerals Tab PO SCH (12:59)
[2021-12-13] MEDS: Folic Acid 0.4 MG Tab PO SCH (20:08)
[2021-12-13] MEDS: Rosuvastatin 20 MG Tab PO SCH (20:08)
[2021-12-13] MEDS: CINNAMON 1000 MG PO SCH (20:10)
[2021-12-13] MEDS: DOXAZOSIN 1 MG PO SCH (20:10)
[2021-12-14] MEDS: ALPRAZolam 0.25 MG Tab PO PRN ×2 (00:49→21:45)
[2021-12-14] MEDS: Acetaminophen/HYDROcodone 325-5 MG Tab PO PRN (02:43)
[2021-12-14] MEDS: hydrALAZINE 25 MG Tab PO SCH ×4 (08:30→20:19)
[2021-12-14] MEDS: Carvedilol 12.5 MG Tab PO SCH ×2 (08:31→17:39)
[2021-12-14] MEDS: Clopidogrel 75 MG Tab PO SCH (08:31)
[2021-12-14] MEDS: Aspirin 81 MG Tab.EC PO SCH (08:32)
[2021-12-14] MEDS: Bumetanide 1 MG Tab PO SCH ×2 (08:32→17:39)
[2021-12-14] MEDS: Ascorbic Acid 500 MG Tab PO SCH (08:33)
[2021-12-14] MEDS: [UNRECOGNIZED DRUG - OTHER] PO SCH (09:08)
[2021-12-14] MEDS: Multivitamins with Iron/Calcium/Folic Acid/Minerals Tab PO SCH (12:27)
[2021-12-14] MEDS: Folic Acid 0.4 MG Tab PO SCH ×2 (19:48→21:59)
[2021-12-14] MEDS: Rosuvastatin 20 MG Tab PO SCH ×2 (19:49→20:20)
[2021-12-14] MEDS: DOXAZOSIN 1 MG PO SCH ×2 (19:53→20:20)
[2021-12-14] MEDS: CINNAMON 1000 MG PO SCH (20:20)
[2021-12-15] MEDS: Acetaminophen/HYDROcodone 325-5 MG Tab PO PRN (01:04)
[2021-12-15] MEDS: Bumetanide 1 MG Tab PO SCH ×2 (09:35→17:49)
[2021-12-15] MEDS: hydrALAZINE 25 MG Tab PO SCH ×3 (09:35→20:40)
[2021-12-15] MEDS: Carvedilol 12.5 MG Tab PO SCH ×2 (09:35→17:49)
[2021-12-15] MEDS: Clopidogrel 75 MG Tab PO SCH (09:36)
[2021-12-15] MEDS: Aspirin 81 MG Tab.EC PO SCH (09:36)
[2021-12-15] MEDS: Ascorbic Acid 500 MG Tab PO SCH (09:36)
[2021-12-15] MEDS: Ondansetron 4 MG Tab.DIS PO PRN (09:42)
[2021-12-15] MEDS: [UNRECOGNIZED DRUG - OTHER] PO SCH (10:59)
[2021-12-15] MEDS: ALPRAZolam 0.25 MG Tab PO PRN (11:37)
[2021-12-15] MEDS: Multivitamins with Iron/Calcium/Folic Acid/Minerals Tab PO SCH (13:30)
[2021-12-15] MEDS: Folic Acid 0.4 MG Tab PO SCH (20:37)
[2021-12-15] MEDS: Rosuvastatin 20 MG Tab PO SCH (20:38)
[2021-12-15] MEDS: DOXAZOSIN 1 MG PO SCH (21:05)
[2021-12-15] MEDS: CINNAMON 1000 MG PO SCH (21:05)
[2021-12-16] MEDS: Acetaminophen/HYDROcodone 325-5 MG Tab PO PRN (00:43)
[2021-12-16] MEDS: ALPRAZolam 0.25 MG Tab PO PRN ×2 (00:44→08:47)
[2021-12-16 06:23] VITALS: BP 121/57; PULSE 65
[2021-12-16] MEDS: Clopidogrel 75 MG Tab PO SCH (08:39)
[2021-12-16] MEDS: Aspirin 81 MG Tab.EC PO SCH (08:39)
[2021-12-16] MEDS: Ascorbic Acid 500 MG Tab PO SCH (08:39)
[2021-12-16] MEDS: Bumetanide 1 MG Tab PO SCH (08:40)
[2021-12-16] MEDS: Carvedilol 12.5 MG Tab PO SCH (08:41)
[2021-12-16] MEDS: hydrALAZINE 25 MG Tab PO SCH (08:41)
[2021-12-16] MEDS: [UNRECOGNIZED DRUG - OTHER] PO SCH (10:18)
== END 2021-12-16 11:35 | disposition home or self-care (01) | DRG 948 ==
LOC: VM.MS 10:53
PROVIDERS: ADMIT Family Medicine; ATTEND Family Medicine
DX: R53.1 Weakness (principal); I13.0 Hypertensive heart and chronic kidney disease with heart failure and stage 1 through stage 4 chronic kidney disease, or unspecified chronic kidney disease; N18.4 Chronic kidney disease, stage 4 (severe); Z20.822 Contact with and (suspected) exposure to COVID-19; C54.1 Malignant neoplasm of endometrium; H91.90 Unspecified hearing loss, unspecified ear; H54.7 Unspecified visual loss; I25.10 Atherosclerotic heart disease of native coronary artery without angina pectoris; E78.00 Pure hypercholesterolemia, unspecified; I50.9 Heart failure, unspecified; R32 Unspecified urinary incontinence; E66.9 Obesity, unspecified; D63.1 Anemia in chronic kidney disease; M10.9 Gout, unspecified; Z88.1 Allergy status to other antibiotic agents; Z88.8 Allergy status to other drugs, medicaments and biological substances; Z90.710 Acquired absence of both cervix and uterus; Z79.82 Long term (current) use of aspirin; Z79.899 Other long term (current) drug therapy
CPT/HCPCS: 36415; 76536; 80048; 82565; 97110-GO; 97110-GP; 97112-GP; 97116-GP; 97162-GP; 97164-GP; 97166-GO; 97535-GO; A9270-GY; J2405; J7030; U0002

== ENCOUNTER 2022-01-06 15:04 | Emergency (ER) | payer BC ==
[2022-01-06] MEDS ORDERED: fentaNYL 50 MCG/ML SDV IVPUSH ONE (17:57)
[2022-01-06 18:35] VITALS: BP 128/45; PULSE 68
== END 2022-01-06 18:50 | disposition short-term general hospital (02) ==
LOC: VM.ED 15:04
DX: K92.2 Gastrointestinal hemorrhage, unspecified (principal); C54.1 Malignant neoplasm of endometrium; N17.9 Acute kidney failure, unspecified; I13.0 Hypertensive heart and chronic kidney disease with heart failure and stage 1 through stage 4 chronic kidney disease, or unspecified chronic kidney disease; N18.9 Chronic kidney disease, unspecified; I50.9 Heart failure, unspecified; M10.9 Gout, unspecified; E66.9 Obesity, unspecified; Z68.38 Body mass index [BMI] 38.0-38.9, adult; Z88.5 Allergy status to narcotic agent; Z79.899 Other long term (current) drug therapy; Z79.82 Long term (current) use of aspirin; Z79.02 Long term (current) use of antithrombotics/antiplatelets
CPT/HCPCS: 36430; 71045; 80053; 83880; 85025; 86140; 86850; 86900; 86901; 86920; 86922; 96374; 99285; J3010; P9016; 36415

== ENCOUNTER 2022-01-14 16:59 | Inpatient (IN) | payer MEDICARE, BC ==
[2022-01-21] MEDS ORDERED: Magnesium Hydroxide 400 MG/5 ML Susp 30 ML Cup PO PRN (15:13)
[2022-01-21] MEDS ORDERED: Acetaminophen/HYDROcodone 325-5 MG Tab PO PRN (15:13)
[2022-01-21] MEDS ORDERED: Pantoprazole 40 MG Tab.CR PO ONE (15:13)
[2022-01-21] MEDS ORDERED: Ondansetron 4 MG Tab.DIS PO PRN (15:13)
[2022-01-21] MEDS: Carvedilol 6.25 MG Tab PO SCH (17:49)
[2022-01-21] MEDS: Melatonin 3 MG Tab PO SCH (20:28)
[2022-01-21] MEDS: Mirtazapine 15 MG Tab PO SCH (20:30)
[2022-01-21] MEDS: Rosuvastatin 20 MG Tab PO SCH (20:31)
[2022-01-21] MEDS: Apixaban 2.5 MG Tab PO SCH (20:35)
[2022-01-22] MEDS: Apixaban 2.5 MG Tab PO SCH ×2 (08:57→20:11)
[2022-01-22] MEDS: Ciprofloxacin 250 MG Tab PO SCH (08:57)
[2022-01-22] MEDS: Iron Polysaccharides Complex 150 MG Cap PO SCH (08:57)
[2022-01-22] MEDS: Carvedilol 6.25 MG Tab PO SCH (08:58)
[2022-01-22] MEDS: Carvedilol 12.5 MG Tab PO SCH (18:29)
[2022-01-22] MEDS: Melatonin 3 MG Tab PO SCH (20:11)
[2022-01-22] MEDS: Mirtazapine 15 MG Tab PO SCH (20:12)
[2022-01-22] MEDS: Rosuvastatin 20 MG Tab PO SCH (20:12)
[2022-01-23] MEDS: Ciprofloxacin 250 MG Tab PO SCH (08:00)
[2022-01-23] MEDS: Carvedilol 12.5 MG Tab PO SCH ×2 (08:00→17:52)
[2022-01-23] MEDS: Apixaban 2.5 MG Tab PO SCH ×2 (08:01→20:12)
[2022-01-23] MEDS: Iron Polysaccharides Complex 150 MG Cap PO SCH (08:01)
[2022-01-23] MEDS: Rosuvastatin 20 MG Tab PO SCH (20:11)
[2022-01-23] MEDS: Mirtazapine 15 MG Tab PO SCH (20:11)
[2022-01-23] MEDS: Melatonin 3 MG Tab PO SCH (20:12)
[2022-01-24] MEDS: Ciprofloxacin 250 MG Tab PO SCH (08:56)
[2022-01-24] MEDS: Apixaban 2.5 MG Tab PO SCH ×2 (08:57→20:03)
[2022-01-24] MEDS: Carvedilol 12.5 MG Tab PO SCH ×2 (08:57→18:00)
[2022-01-24] MEDS: Iron Polysaccharides Complex 150 MG Cap PO SCH (08:58)
[2022-01-24] MEDS: Rosuvastatin 20 MG Tab PO SCH (20:00)
[2022-01-24] MEDS: Mirtazapine 15 MG Tab PO SCH (20:00)
[2022-01-24] MEDS: Melatonin 3 MG Tab PO SCH (20:00)
[2022-01-25] MEDS: Iron Polysaccharides Complex 150 MG Cap PO SCH (08:07)
[2022-01-25] MEDS: Apixaban 2.5 MG Tab PO SCH ×2 (08:07→23:16)
[2022-01-25] MEDS: Ciprofloxacin 250 MG Tab PO SCH (08:07)
[2022-01-25] MEDS: Carvedilol 12.5 MG Tab PO SCH ×2 (08:09→17:16)
[2022-01-25] MEDS: Rosuvastatin 20 MG Tab PO SCH (20:39)
[2022-01-25] MEDS: Melatonin 3 MG Tab PO SCH (20:40)
[2022-01-25] MEDS: Mirtazapine 15 MG Tab PO SCH (20:49)
[2022-01-26] MEDS: Iron Polysaccharides Complex 150 MG Cap PO SCH (09:44)
[2022-01-26] MEDS: Carvedilol 12.5 MG Tab PO SCH ×2 (09:45→17:17)
[2022-01-26] MEDS: Ciprofloxacin 250 MG Tab PO SCH (09:45)
[2022-01-26] MEDS: Apixaban 2.5 MG Tab PO SCH ×2 (09:49→21:10)
[2022-01-26 15:03] LABS: ANION GAP 12.4 mmol/L (5-15)
[2022-01-26] MEDS: Mirtazapine 15 MG Tab PO SCH (21:10)
[2022-01-26] MEDS: Melatonin 3 MG Tab PO SCH (21:12)
[2022-01-26] MEDS: Rosuvastatin 20 MG Tab PO SCH (21:13)
[2022-01-27] MEDS: Carvedilol 12.5 MG Tab PO SCH ×2 (08:33→17:38)
[2022-01-27] MEDS: Iron Polysaccharides Complex 150 MG Cap PO SCH (08:33)
[2022-01-27] MEDS: Apixaban 2.5 MG Tab PO SCH ×2 (08:33→20:59)
[2022-01-27] MEDS: Rosuvastatin 20 MG Tab PO SCH (20:54)
[2022-01-27] MEDS: Melatonin 3 MG Tab PO SCH (20:57)
[2022-01-27] MEDS: Mirtazapine 15 MG Tab PO SCH (20:58)
[2022-01-28] MEDS: Iron Polysaccharides Complex 150 MG Cap PO SCH (08:29)
[2022-01-28] MEDS: Apixaban 2.5 MG Tab PO SCH ×2 (08:29→21:04)
[2022-01-28] MEDS: Carvedilol 12.5 MG Tab PO SCH ×2 (08:30→17:28)
[2022-01-28] MEDS: Melatonin 3 MG Tab PO SCH (21:04)
[2022-01-28] MEDS: Rosuvastatin 20 MG Tab PO SCH (21:06)
[2022-01-28] MEDS: Mirtazapine 15 MG Tab PO SCH (21:10)
[2022-01-29] MEDS: Carvedilol 12.5 MG Tab PO SCH ×2 (08:03→17:18)
[2022-01-29] MEDS: Iron Polysaccharides Complex 150 MG Cap PO SCH (08:04)
[2022-01-29] MEDS: Apixaban 2.5 MG Tab PO SCH ×2 (08:05→20:02)
[2022-01-29] MEDS: Melatonin 3 MG Tab PO SCH (19:59)
[2022-01-29] MEDS: Mirtazapine 15 MG Tab PO SCH (19:59)
[2022-01-29] MEDS: Rosuvastatin 20 MG Tab PO SCH (20:02)
[2022-01-30] MEDS: Sodium Chloride 0.9% 10 ML Syringe IV PRN (06:37)
[2022-01-30 07:12] LABS: ANION GAP 11.8 mmol/L (5-15)
[2022-01-30] MEDS: Apixaban 2.5 MG Tab PO SCH ×2 (09:45→20:23)
[2022-01-30] MEDS: Carvedilol 12.5 MG Tab PO SCH ×2 (09:47→18:01)
[2022-01-30] MEDS: Iron Polysaccharides Complex 150 MG Cap PO SCH (09:47)
[2022-01-30] MEDS: Melatonin 3 MG Tab PO SCH (20:23)
[2022-01-30] MEDS: Rosuvastatin 20 MG Tab PO SCH (20:23)
[2022-01-30] MEDS: Mirtazapine 15 MG Tab PO SCH (20:24)
[2022-01-31] MEDS: Iron Polysaccharides Complex 150 MG Cap PO SCH (08:32)
[2022-01-31] MEDS: Carvedilol 12.5 MG Tab PO SCH ×2 (08:32→17:30)
[2022-01-31] MEDS: Apixaban 2.5 MG Tab PO SCH ×2 (08:32→20:00)
[2022-01-31] MEDS: Rosuvastatin 20 MG Tab PO SCH (20:00)
[2022-01-31] MEDS: Melatonin 3 MG Tab PO SCH (20:00)
[2022-01-31] MEDS: Mirtazapine 15 MG Tab PO SCH (20:00)
[2022-01-31] MEDS: Sodium Chloride 0.9% 10 ML Syringe IV PRN (20:01)
[2022-01-31] MEDS: Acetaminophen 325 MG Tab PO PRN (22:10)
[2022-02-01] MEDS: Apixaban 2.5 MG Tab PO SCH ×2 (09:00→20:19)
[2022-02-01] MEDS: Iron Polysaccharides Complex 150 MG Cap PO SCH (09:00)
[2022-02-01] MEDS: Carvedilol 12.5 MG Tab PO SCH ×2 (09:01→18:02)
[2022-02-01] MEDS: Sodium Chloride 0.9% 10 ML Syringe IV PRN (09:03)
[2022-02-01] MEDS: Rosuvastatin 20 MG Tab PO SCH (20:15)
[2022-02-01] MEDS: Mirtazapine 15 MG Tab PO SCH (20:19)
[2022-02-01] MEDS: Melatonin 3 MG Tab PO SCH (20:19)
[2022-02-01] MEDS: Acetaminophen 325 MG Tab PO PRN (21:50)
[2022-02-02] MEDS: Iron Polysaccharides Complex 150 MG Cap PO SCH (09:41)
[2022-02-02] MEDS: Apixaban 2.5 MG Tab PO SCH ×2 (09:41→20:02)
[2022-02-02] MEDS: Carvedilol 12.5 MG Tab PO SCH ×2 (09:44→17:31)
[2022-02-02] MEDS: Melatonin 3 MG Tab PO SCH (20:01)
[2022-02-02] MEDS: Rosuvastatin 20 MG Tab PO SCH (20:01)
[2022-02-02] MEDS: Mirtazapine 15 MG Tab PO SCH (20:06)
[2022-02-02] MEDS: Acetaminophen 325 MG Tab PO PRN (22:57)
[2022-02-03] MEDS: Carvedilol 12.5 MG Tab PO SCH ×2 (08:15→17:44)
[2022-02-03] MEDS: Apixaban 2.5 MG Tab PO SCH ×2 (08:15→20:32)
[2022-02-03] MEDS: Iron Polysaccharides Complex 150 MG Cap PO SCH (08:15)
[2022-02-03] MEDS: Rosuvastatin 20 MG Tab PO SCH (20:33)
[2022-02-03] MEDS: Mirtazapine 15 MG Tab PO SCH (20:34)
[2022-02-03] MEDS: Melatonin 3 MG Tab PO SCH (20:34)
[2022-02-04] MEDS: Iron Polysaccharides Complex 150 MG Cap PO SCH (08:06)
[2022-02-04] MEDS: Carvedilol 12.5 MG Tab PO SCH ×2 (08:06→18:08)
[2022-02-04] MEDS: Apixaban 2.5 MG Tab PO SCH ×2 (08:07→20:00)
[2022-02-04] MEDS: Mirtazapine 15 MG Tab PO SCH (20:00)
[2022-02-04] MEDS: Melatonin 3 MG Tab PO SCH (20:00)
[2022-02-04] MEDS: Rosuvastatin 20 MG Tab PO SCH (20:01)
[2022-02-04] MEDS: Acetaminophen 325 MG Tab PO PRN (21:23)
[2022-02-05] MEDS: Iron Polysaccharides Complex 150 MG Cap PO SCH (09:27)
[2022-02-05] MEDS: Carvedilol 12.5 MG Tab PO SCH ×2 (09:27→17:35)
[2022-02-05] MEDS: Apixaban 2.5 MG Tab PO SCH ×2 (09:29→20:07)
[2022-02-05] MEDS: Mirtazapine 15 MG Tab PO SCH (20:07)
[2022-02-05] MEDS: Rosuvastatin 20 MG Tab PO SCH (20:08)
[2022-02-05] MEDS: Melatonin 3 MG Tab PO SCH (20:08)
[2022-02-05] MEDS: Acetaminophen 325 MG Tab PO PRN (22:24)
[2022-02-06] MEDS: Carvedilol 12.5 MG Tab PO SCH ×2 (08:00→17:54)
[2022-02-06] MEDS: Iron Polysaccharides Complex 150 MG Cap PO SCH (08:00)
[2022-02-06] MEDS: Apixaban 2.5 MG Tab PO SCH ×2 (08:01→20:28)
[2022-02-06] MEDS: Melatonin 3 MG Tab PO SCH (20:27)
[2022-02-06] MEDS: Rosuvastatin 20 MG Tab PO SCH (20:28)
[2022-02-06] MEDS: Mirtazapine 15 MG Tab PO SCH (20:32)
[2022-02-06] MEDS: Acetaminophen 325 MG Tab PO PRN (20:33)
[2022-02-07] MEDS: Apixaban 2.5 MG Tab PO SCH ×2 (08:21→20:15)
[2022-02-07] MEDS: Carvedilol 12.5 MG Tab PO SCH ×2 (08:21→17:13)
[2022-02-07] MEDS: Iron Polysaccharides Complex 150 MG Cap PO SCH (08:21)
[2022-02-07] MEDS: Melatonin 3 MG Tab PO SCH (20:13)
[2022-02-07] MEDS: Rosuvastatin 20 MG Tab PO SCH (20:14)
[2022-02-07] MEDS: Acetaminophen 325 MG Tab PO PRN (20:16)
[2022-02-07] MEDS: Mirtazapine 15 MG Tab PO SCH (20:16)
[2022-02-08] MEDS: Iron Polysaccharides Complex 150 MG Cap PO SCH (08:03)
[2022-02-08] MEDS: Carvedilol 12.5 MG Tab PO SCH ×2 (08:03→17:47)
[2022-02-08] MEDS: Apixaban 2.5 MG Tab PO SCH ×2 (08:04→20:19)
[2022-02-08] MEDS: Melatonin 3 MG Tab PO SCH (20:19)
[2022-02-08] MEDS: Rosuvastatin 20 MG Tab PO SCH (20:20)
[2022-02-08] MEDS: Mirtazapine 15 MG Tab PO SCH (20:21)
[2022-02-09] MEDS: Acetaminophen 325 MG Tab PO PRN (00:18)
[2022-02-09 07:10] LABS: ANION GAP 11.8 mmol/L (5-15)
[2022-02-09] MEDS: Carvedilol 12.5 MG Tab PO SCH ×2 (08:06→17:30)
[2022-02-09] MEDS: Iron Polysaccharides Complex 150 MG Cap PO SCH (08:06)
[2022-02-09] MEDS: Apixaban 2.5 MG Tab PO SCH ×2 (08:06→19:59)
[2022-02-09] MEDS: Melatonin 3 MG Tab PO SCH (19:59)
[2022-02-09] MEDS: Mirtazapine 15 MG Tab PO SCH (19:59)
[2022-02-09] MEDS: Rosuvastatin 20 MG Tab PO SCH (19:59)
[2022-02-10] MEDS: Iron Polysaccharides Complex 150 MG Cap PO SCH (08:07)
[2022-02-10] MEDS: Apixaban 2.5 MG Tab PO SCH ×2 (08:08→20:20)
[2022-02-10] MEDS: Carvedilol 12.5 MG Tab PO SCH ×2 (08:09→17:34)
[2022-02-10] MEDS: Mirtazapine 15 MG Tab PO SCH (20:19)
[2022-02-10] MEDS: Melatonin 3 MG Tab PO SCH (20:20)
[2022-02-10] MEDS: Rosuvastatin 20 MG Tab PO SCH (20:20)
[2022-02-11] MEDS: Acetaminophen 325 MG Tab PO PRN (00:28)
[2022-02-11] MEDS: Iron Polysaccharides Complex 150 MG Cap PO SCH (08:55)
[2022-02-11] MEDS: Apixaban 2.5 MG Tab PO SCH ×2 (08:55→20:02)
[2022-02-11] MEDS: Carvedilol 12.5 MG Tab PO SCH ×2 (08:55→18:43)
[2022-02-11] MEDS: Rosuvastatin 20 MG Tab PO SCH (20:02)
[2022-02-11] MEDS: Melatonin 3 MG Tab PO SCH (20:02)
[2022-02-11] MEDS: Mirtazapine 15 MG Tab PO SCH (20:03)
[2022-02-12] MEDS: Iron Polysaccharides Complex 150 MG Cap PO SCH (08:46)
[2022-02-12] MEDS: Carvedilol 12.5 MG Tab PO SCH ×2 (08:47→18:22)
[2022-02-12] MEDS: Apixaban 2.5 MG Tab PO SCH ×2 (08:47→20:38)
[2022-02-12] MEDS: Melatonin 3 MG Tab PO SCH (20:38)
[2022-02-12] MEDS: Rosuvastatin 20 MG Tab PO SCH (20:39)
[2022-02-12] MEDS: Mirtazapine 15 MG Tab PO SCH (20:39)
[2022-02-12] MEDS: Acetaminophen 325 MG Tab PO PRN (20:44)
[2022-02-13 06:05] VITALS: BP 134/60
[2022-02-13] MEDS: Carvedilol 12.5 MG Tab PO SCH (07:59)
[2022-02-13] MEDS: Apixaban 2.5 MG Tab PO SCH (08:00)
[2022-02-13 08:01] VITALS: PULSE 74
[2022-02-13] MEDS: Iron Polysaccharides Complex 150 MG Cap PO SCH (09:12)
== END 2022-02-13 13:24 | disposition home or self-care (01) | DRG 948 ==
LOC: VM.MS 01-21 15:09
PROVIDERS: ADMIT Family Medicine; ATTEND Family Medicine
PROC: 30233N1 Transfusion of Nonautologous Red Blood Cells into Peripheral Vein, Percutaneous Approach (ICD-10-PCS; principal; 2022-01-30)
DX: R53.1 Weakness (principal); N18.5 Chronic kidney disease, stage 5; I13.0 Hypertensive heart and chronic kidney disease with heart failure and stage 1 through stage 4 chronic kidney disease, or unspecified chronic kidney disease; D63.1 Anemia in chronic kidney disease; H54.7 Unspecified visual loss; Z66 Do not resuscitate; H91.90 Unspecified hearing loss, unspecified ear; I50.9 Heart failure, unspecified; C54.1 Malignant neoplasm of endometrium; I25.10 Atherosclerotic heart disease of native coronary artery without angina pectoris; E78.00 Pure hypercholesterolemia, unspecified; R32 Unspecified urinary incontinence; M10.9 Gout, unspecified; F41.9 Anxiety disorder, unspecified; E66.9 Obesity, unspecified; Z85.89 Personal history of malignant neoplasm of other organs and systems; Z88.1 Allergy status to other antibiotic agents; Z88.8 Allergy status to other drugs, medicaments and biological substances; Z88.5 Allergy status to narcotic agent; Z79.01 Long term (current) use of anticoagulants; Z79.899 Other long term (current) drug therapy; Z85.42 Personal history of malignant neoplasm of other parts of uterus; Z86.16 Personal history of COVID-19; Z86.19 Personal history of other infectious and parasitic diseases; Z95.5 Presence of coronary angioplasty implant and graft; Z90.710 Acquired absence of both cervix and uterus
CPT/HCPCS: 36415; 36430; 80048; 85014; 85018; 85025; 85027; 86850; 86900; 86901; 86920; 86922; 97110-GO; 97110-GP; 97116-GP; 97140-GP; 97161-GP; 97165-GO; 97530-GP; A9270-GY; J1642; J3490; P9016

== ENCOUNTER 2022-03-31 10:33 | Emergency (ER) | payer BC ==
[2022-03-31 11:13] VITALS: BP 138/48; PULSE 76
== END 2022-03-31 11:47 | disposition home or self-care (01) ==
LOC: VM.ED 10:33
DX: M79.10 Myalgia, unspecified site (principal); I25.10 Atherosclerotic heart disease of native coronary artery without angina pectoris; E78.00 Pure hypercholesterolemia, unspecified; I13.0 Hypertensive heart and chronic kidney disease with heart failure and stage 1 through stage 4 chronic kidney disease, or unspecified chronic kidney disease; N18.4 Chronic kidney disease, stage 4 (severe); I50.9 Heart failure, unspecified; M10.9 Gout, unspecified; E66.9 Obesity, unspecified; Z68.30 Body mass index [BMI] 30.0-30.9, adult; Z95.5 Presence of coronary angioplasty implant and graft; Z88.5 Allergy status to narcotic agent; Z88.8 Allergy status to other drugs, medicaments and biological substances; Z79.01 Long term (current) use of anticoagulants; Z79.899 Other long term (current) drug therapy; Z86.16 Personal history of COVID-19
CPT/HCPCS: 96374; 99283-25; 99284; J1642

== ENCOUNTER 2022-07-16 09:49 | Inpatient (IN) | payer MEDICARE, BC ==
[2022-07-16 11:07] LABS: CHLORIDE,CL 104 mmol/L (98-107); SODIUM,NA 140 mmol/L (136-145)
[2022-07-16 11:09] LABS: ANION GAP 17.4 mmol/L (5-15); ESTIMATED GFR 6 mL/min (>=60)
[2022-07-16] MEDS ORDERED: Acetaminophen 325 MG Tab PO PRN (12:37)
[2022-07-16] MEDS ORDERED: Albuterol/Ipratropium 3.0-0.5 MG/3 ML Neb Soln NEB PRN (12:42)
[2022-07-16] MEDS ORDERED: Morphine 2 MG/ML SYRINGE IVPUSH PRN (12:42)
[2022-07-16] MEDS ORDERED: Sodium Chloride 0.9% 10 ML Syringe FLUSH PRN (12:42)
[2022-07-16] MEDS: Bumetanide 1 MG Tab PO SCH ×2 (14:24→15:19)
[2022-07-16] MEDS: Nitroglycerin 2% Oint 1 GM UD Packet TOP SCH ×2 (14:27→23:58)
[2022-07-16] MEDS: Furosemide 20 MG/2 ML VIAL IV SCH ×2 (14:27→14:36)
[2022-07-16] MEDS: Ondansetron 4 MG/2 ML SDV IV PRN (15:31)
[2022-07-16] MEDS: Carvedilol 12.5 MG Tab PO SCH (18:44)
[2022-07-16] MEDS ORDERED: Mirtazapine 15 MG Tab PO SCH (21:00)
[2022-07-16] MEDS ORDERED: Melatonin 3 MG Tab PO SCH (21:00)
[2022-07-16] MEDS: Apixaban 2.5 MG Tab PO SCH (21:48)
[2022-07-16] MEDS: Nystatin Crm 30 GM Tube TOP SCH (22:02)
[2022-07-17] MEDS: Nitroglycerin 2% Oint 1 GM UD Packet TOP SCH ×2 (06:05→14:52)
[2022-07-17 07:20] LABS: ANION GAP 15.5 mmol/L (5-15)
[2022-07-17] MEDS ORDERED: Cholecalciferol (Vitamin D3) 25 MCG Tab PO SCH (09:00)
[2022-07-17] MEDS ORDERED: 50% Dextrose in Water 50 ML Syringe IVPUSH PRN (09:49)
[2022-07-17] MEDS ORDERED: Glucagon,Human Recombinant 1 MG Vial IM PRN (09:49)
[2022-07-17] MEDS ORDERED: Insulin Regular, Human 100 Units/ML 3 ML Vial IVPUSH ONE (09:49)
[2022-07-17] MEDS ORDERED: Albuterol 0.083% 2.5 MG/3 ML Neb Soln NEB ONE (09:52)
[2022-07-17] MEDS ORDERED: 50% Dextrose in Water 50 ML Syringe IVPUSH ONE (10:15)
[2022-07-17] MEDS: Bumetanide 1 MG Tab PO SCH (10:18)
[2022-07-17] MEDS ORDERED: Albuterol 0.083% 2.5 MG/3 ML Neb Soln ONE (10:19)
[2022-07-17] MEDS ORDERED: Sodium Chloride 0.9% 250 ML IV ONE (10:30)
[2022-07-17] MEDS ORDERED: CALCIUM GLUC IV ONE ×2 (10:30)
[2022-07-17] MEDS ORDERED: NACL IV ONE ×2 (10:30)
[2022-07-17] MEDS ORDERED: Sodium Polystyrene Sulfonate 15 GM/60 ML Susp 60 ML Bot PO ONE (10:30)
[2022-07-17] MEDS ORDERED: Sodium Chloride 0.9% 1,000 ML IV SCH (11:00)
[2022-07-17] MEDS: Furosemide 20 MG/2 ML VIAL IV SCH (11:06)
[2022-07-17] MEDS: Nystatin Crm 30 GM Tube TOP SCH (11:26)
[2022-07-17] MEDS: Carvedilol 12.5 MG Tab PO SCH (11:28)
[2022-07-17] MEDS: Apixaban 2.5 MG Tab PO SCH (11:28)
[2022-07-17 12:45] LABS: ANION GAP 18.1 mmol/L (5-15)
[2022-07-17] MEDS ORDERED: Sodium Polystyrene Sulfonate 15 GM/60 ML Susp 60 ML Bot RECTAL ONE ×2 (12:50→14:00)
[2022-07-17 13:20] VITALS: BP 100/48; PULSE 78
[2022-07-17] MEDS ORDERED: Nystatin Crm 30 GM Tube TOP PRN ×2 (15:26→15:30)
[2022-07-17] MEDS ORDERED: Furosemide 20 MG/2 ML VIAL IV SCH (21:00)
[2022-07-17] MEDS: Sodium Chloride 0.9% 10 ML Syringe FLUSH PRN (21:56)
[2022-07-18] MEDS: Morphine 2 MG/ML SYRINGE IVPUSH PRN ×2 (00:09→04:43)
[2022-07-18] MEDS: LORazepam 2 MG/ML SDV IVPUSH PRN ×2 (02:23→06:47)
[2022-07-18] MEDS: Ondansetron 4 MG/2 ML SDV IV PRN (04:44)
[2022-07-18] MEDS: Sodium Chloride 0.9% 10 ML Syringe FLUSH PRN ×2 (04:47→06:50)
[2022-07-18] MEDS ORDERED: Scopolamine 1.5 MG Transdermal Patch TRDERM SCH (10:15)
== END 2022-07-18 12:30 | disposition expired | DRG 683 ==
LOC: VM.ED 09:49 → UNDOADMIN 11:59 → VM.MS 11:59
PROVIDERS: ADMIT Physician Assistant Medical; ATTEND Physician Assistant Medical
DX: R06.02 Shortness of breath (principal); N17.9 Acute kidney failure, unspecified; I13.0 Hypertensive heart and chronic kidney disease with heart failure and stage 1 through stage 4 chronic kidney disease, or unspecified chronic kidney disease; N18.9 Chronic kidney disease, unspecified; Z68.41 Body mass index [BMI] 40.0-44.9, adult; E78.00 Pure hypercholesterolemia, unspecified; E87.5 Hyperkalemia; N18.4 Chronic kidney disease, stage 4 (severe); Z51.5 Encounter for palliative care; Z79.01 Long term (current) use of anticoagulants; I50.9 Heart failure, unspecified; I25.10 Atherosclerotic heart disease of native coronary artery without angina pectoris; E87.70 Fluid overload, unspecified; E78.5 Hyperlipidemia, unspecified; R32 Unspecified urinary incontinence; M81.0 Age-related osteoporosis without current pathological fracture; F41.9 Anxiety disorder, unspecified; D63.1 Anemia in chronic kidney disease; H54.7 Unspecified visual loss; M10.9 Gout, unspecified; E66.9 Obesity, unspecified; Z86.16 Personal history of COVID-19; Z95.5 Presence of coronary angioplasty implant and graft; Z90.710 Acquired absence of both cervix and uterus; Z88.5 Allergy status to narcotic agent; Z87.19 Personal history of other diseases of the digestive system; Z88.8 Allergy status to other drugs, medicaments and biological substances; Z79.1 Long term (current) use of non-steroidal anti-inflammatories (NSAID); Z79.899 Other long term (current) drug therapy
CPT/HCPCS: 71045; 80048; 80053; 83880; 84484; 85025; 93005; 94640; 94760; 96374; 99285-25; A9270-GY; J1642; J1815-GY; J1940; J2060; J2270; J2405; J3490; J7030; J7613-GY